=== PATIENT | female | born 1960 | race Caucasian/White ===

== ENCOUNTER → 2017-01-07 | Outpatient (CLI) | payer MEDICARE ==
[2017-01-07 08:34] LABS: Basophils % (A) 0 %; CH 25.6; CHCM 31.7; Eosinophils # (A) 0.1 k/uL (0-0.7); Eosinophils % (A) 1 %; HCT 39.7 % (34.0-46.0); HGB 12.8 gm/dL (11.4-16.0); Luc # (Auto) 0.17; Luc % (Auto) 3; Lymphocytes # (A) 2.2 k/uL (1.0-4.8); Lymphocytes % (A) 36 %; MCH 26.2 pg (25.0-35.0); MCHC 32.3 g/dL (31.0-37.0); MCV 81.1 fL (80.0-100.0); Mean Platelet Volume 6.5; Monocytes # (A) 0.6 k/uL (0-1.0); Monocytes % (A) 9 %; Neutrophils # (A) 3.3 k/uL (1.3-7.7); Neutrophils % (A) 52 %; RBC 4.89 m/uL (3.80-5.40); RDW 15.4 % (11.5-15.5); WBC 6.3 k/uL (3.8-10.6); WBC (Perox) 6.49
[2017-01-07 08:54] LABS: ALT 26 U/L (9-52); AST 22 U/L (14-36); Alkaline Phosphatase 85 U/L (38-126); Anion Gap 8 mmol/L; Blood Urea Nitrogen 17 mg/dL (7-17); Calcium 8.6 mg/dL (8.4-10.2); Carbon Dioxide 28 mmol/L (22-30); Chloride 100 mmol/L (98-107); Cholesterol 181 mg/dL (<200); Glucose 82 mg/dL (74-99); HDL Cholesterol 81 mg/dL (40-60); Non-African American GFR(MDRD) >60 (>60 ml/min/1.73 sqM); Potassium 4.8 mmol/L (3.5-5.1); Sodium 136 mmol/L (137-145); Total Bilirubin 0.6 mg/dL (0.2-1.3); Total Protein 6.5 g/dL (6.3-8.2); Triglycerides 211 mg/dL (<150)
== END ==
LOC: LABWHC1 08:05
PROVIDERS: ATTEND Nurse Practitioner Adult Health
DX: E78.5 Hyperlipidemia, unspecified (principal); E03.9 Hypothyroidism, unspecified
CPT/HCPCS: 36415; 80053; 80061; 84439; 84443; 85025

== ENCOUNTER → 2017-01-07 | Outpatient (CLI) | payer MEDICARE ==
--- NOTE | 2017-01-07 10:30 | MR ---
MRI of the brain with and without contrast HISTORY: Headaches. TECHNIQUE: T1-weighted sagittal, T2, FLAIR, and diffusion axial, postcontrast T1 axial and coronal vi ews of the brain are submitted. CONTRAST: 16 mL MultiHance COMPARISON: 06/22/2015 FINDINGS: There is no evidence of acute ischemia. The ventricles, basal cisterns, and sulci overlying the co nvexities are consistent with the patient's age. There is no mass effect or enhancing mass. Craniocervical junction maintained. Sella turcica has a normal appearance. No evidence of cerebellopo ntine angle mass. Changes of chronic sinusitis noted. WHITE MATTER: There are approximately 30 white matter lesions scattered bilaterally. The largest measures 8.5 mm ad jacent to the posterior margin of left lateral ventricle appears slightly increased in size from the previous exam. There also is a lesion within the posterior right parietal white matter measuring 3.5 mm increased in size from the previous exam. Remaining lesions demonstrate a stable morphology and nu mber. No enhancing lesions. No lesions perpendicular to ventricular system. No callosal lesions. No p osterior fossa lesions. IMPRESSION: 1. Stable number of white matter lesions. However, there is increase in 2 lesions involving the right cerebral hemisphere in size relative to the previous exam by incremental couple of millimeters. No e nhancing lesions. Findings compatible with demyelinating process.
== END ==
LOC: RADMRIMAIN 07:48
PROVIDERS: ATTEND Psychiatry & Neurology Neurology
DX: G35 Multiple sclerosis (principal); J32.9 Chronic sinusitis, unspecified
CPT/HCPCS: 70553; A9577

== ENCOUNTER 2017-02-18 09:40 | Day surgery (SDC) | payer MEDICARE ==
[2017-02-16 12:55] VITALS: BMI 30.3
[~2017-02-18 09:40] MED LIST: LACTATED RINGERS 1,000 ML IV SCH; LIDOCAINE 1% 20 ML VIAL (10MG/ML) FOR IV START INTRADERMA PRN
[2017-02-18 10:32] VITALS: RESP 16; TEMP 98.5
[2017-02-18] MEDS ORDERED: PROPOFOL 10 MG/ML 20 ML VIAL IV ONE (11:01)
--- NOTE | 2017-02-18 11:26 | P.PCN ---
Date of Procedure: 02/18/17 Preoperative Diagnosis: Postoperative Diagnosis: Procedure(s) Performed: Brief history: Patient is a pleasant 56-year-old white female, scheduled for an elective upper endoscopy as well as colonoscopy as a part of evaluation of surveillance of Patton's esophagus and positive cologard testing which was done as part of screening for colon cancer. Procedure performed: Esophagogastroduodenoscopy with biopsy Colonoscopy Preoperative diagnosis: Patton's esophagus Positive Cologuard testing Anesthesia: MAC Procedure: After informed consent was obtained from the patient was brought into the endoscopy unit and IV sedation was administered by anesthesia under continuous monitoring. Initially upper endoscopy was done. The Olympus GF 160 video endoscope was inserted inserted into the mouth and esophagus intubated without any difficulty and was gradually advanced into the stomach and duodenum and carefully examined. The bulb and second part of the duodenum appeared normal. The scope was then withdrawn into the stomach adequately insufflated with air and upon careful examination the antrum and body, had few scattered polyps which were biopsied. The cardia and fundus appeared normal. The scope was then withdrawn into the esophagus. The GE junction was located at 39 cm to the incisors. It appeared regular with no erythema erosions or ulcerations. There was a short tongue of Patton's appearing mucosa at 37 cm from the incisors and this was biopsied. Rest of the esophagus appeared normal. Patient tolerated the procedure well. At this time the patient continued to remain sedation. Initial digital rectal examination was normal. Olympus CF 160 video colonoscope was then inserted into the rectum and gradually advanced to the cecum without any difficulty. Careful examination was performed as the scope was gradually being withdrawn. The prep was somewhat poor and several areas of the colon and thorough irrigation was performed. The cecum, ascending colon, transverse colon, descending colon, sigmoid colon and rectum appeared normal. Retroflexion was performed in the rectum and no lesions were noted. Patient tolerated the procedure well. Impression: 1. Upper endoscopy revealed scattered gastric polyps and short segment Patton' s esophagus 2. Colonoscopy was essentially within normal limits with no evidence of colitis or colorectal neoplasia. Recommendations: Findings of this examination were discussed with the patient as well as her family. She was advised to follow with the biopsy results. If the biopsy confirms Patton's esophagus she can have a repeat upper endoscopy in 2 years. Because of the poor prep I advised her to have a repeat colonoscopy in 5 years Implants: Indications for Procedure: Operative Findings: Description of Procedure:
[2017-02-18 11:30] VITALS: BP 115/81; PULSE 76
== END 2017-02-18 12:18 | disposition home or self-care (01) ==
LOC: ORWHC2ENDO 09:40
PROVIDERS: ATTEND Internal Medicine Gastroenterology
DX: Z12.11 Encounter for screening for malignant neoplasm of colon (principal); Z15.09 Genetic susceptibility to other malignant neoplasm; K22.70 Barrett's esophagus without dysplasia; K31.7 Polyp of stomach and duodenum; I10 Essential (primary) hypertension; E07.9 Disorder of thyroid, unspecified; G35 Multiple sclerosis; K21.9 Gastro-esophageal reflux disease without esophagitis; Z79.899 Other long term (current) drug therapy; Z88.5 Allergy status to narcotic agent
CPT/HCPCS: 88305; 88342; 43239; J2704; G0121

== ENCOUNTER → 2018-01-28 | Outpatient (CLI) | payer MEDICARE ==
--- NOTE | 2018-02-09 13:51 | MM ---
Reason for exam: screening (asymptomatic). Last mammogram was performed 2 years and 3 months ago. History: Patient is postmenopausal. Family history of breast cancer in mother and breast cancer in sister. Took estrogen beginning at age 22. Took progesterone beginning at age 22. Physical Findings: A clinical breast exam by your physician is recommended on an annual basis and results should be correlated with mammographic findings. MG 3D Screening Mammo W/Cad Bilateral CC and MLO view(s) were taken. Prior study comparison: October 16, 2015, mammogram, performed at [facility]. September 26, 2013, mammogram, performed at [facility]. Finding: There are typically benign calcifications in both breasts. No suspicious abnormality. Chronic bilateral nipple inversion noted. ASSESSMENT: Benign, BI-RAD 2 RECOMMENDATION: Routine screening mammogram of both breasts in 1 year.
== END | disposition home or self-care (01) ==
LOC: RADMAMWWP 11:03
PROVIDERS: ATTEND Family Medicine
DX: Z12.31 Encounter for screening mammogram for malignant neoplasm of breast (principal)
CPT/HCPCS: 77063; 77067

== ENCOUNTER → 2018-03-22 | Outpatient (CLI) | payer MEDICARE ==
[2018-03-22 08:47] LABS: Basophils % (A) 1 %; Eosinophils # (A) 0.1 k/uL (0-0.7); Eosinophils % (A) 3 %; HCT 39.5 % (34.0-46.0); HGB 13.1 gm/dL (11.4-16.0); Lymphocytes # (A) 0.8 k/uL (1.0-4.8); Lymphocytes % (A) 21 %; MCH 26.3 pg (25.0-35.0); MCV 79.6 fL (80.0-100.0); Mean Platelet Volume 6.5; Monocytes # (A) 0.3 k/uL (0-1.0); Monocytes % (A) 7 %; Neutrophils # (A) 2.6 k/uL (1.3-7.7); Neutrophils % (A) 68 %; Platelet Count 271 k/uL (150-450); RBC 4.96 m/uL (3.80-5.40); RDW 15.8 % (11.5-15.5); WBC 3.9 k/uL (3.8-10.6)
[2018-03-22 08:56] LABS: ALT 20 U/L (9-52); AST 34 U/L (14-36); Alkaline Phosphatase 109 U/L (38-126); Anion Gap 10 mmol/L; Blood Urea Nitrogen 13 mg/dL (7-17); Calcium 9.1 mg/dL (8.4-10.2); Carbon Dioxide 27 mmol/L (22-30); Chloride 104 mmol/L (98-107); Cholesterol 184 mg/dL (<200); Glucose 93 mg/dL (74-99); HDL Cholesterol 51 mg/dL (40-60); LDL Cholesterol,Calculated 108 mg/dL (0-99); Sodium 141 mmol/L (137-145); Total Bilirubin 0.4 mg/dL (0.2-1.3); Triglycerides 124 mg/dL (<150)
[2018-03-22 09:11] LABS: T4, Free (Free Thyroxine) 1.24 ng/dL (0.78-2.19)
--- NOTE | 2018-03-22 10:13 | MR ---
EXAMINATION TYPE: MR brain wo/w con DATE OF EXAM: 03/22/2018 COMPARISON: MRI brain January 07, 2017. HISTORY: Relapsing remitting multiple sclerosis TECHNIQUE: Multiplanar, multisequence images of the brain and brainstem is performed without and with IV contras t, utilizing 8.5 mL intravenous Gadavist gadolinium contrast is administered intravenously. Demyelin ating disease protocol with additional Sagittal Flair sequence performed. FINDINGS: T2 Lesions Present : Yes Approximate Number of Lesions: Approximately 20-30 Locations Identified : Scattered subcortical deep and periventricular lesions most prominent posterio rly are redemonstrated. Size of Reference Lesion(s): 1. 0.7 cm x 0.7 cm x 0.8 cm on axial image 18 and sagittal image 11 left parietal periventricular le richa stable. Enhancing Lesion(s) Present: No T1 Hypointense Lesion(s) Present: Yes Change from Prior: Stable Diffusion weighted images demonstrate no evidence of a recent infarct or other diffusion abnormality. There is no worrisome extra-axial fluid collection. The ventricular system and cisternal spaces ar e normal in size and appearance. The brain volume is age appropriate. Midline structures demonstrate normal morphology. The craniocervical junction appears within normal limits. Post contrast images demonstrate no abnormal enhancement. The dural venous sinuses appear pa tent. Mild mucosal thickening bilateral ethmoid sinuses remains present. The globes are intact bilate rally. IMPRESSION: Mild to moderate white matter changes redemonstrated felt stable. No new or enhancing les ions are clearly identified.
[2018-03-22 16:58] LABS: Insulin Level 14.4 mIU/mL (3.0-25.0); Vitamin D 25 Hydroxy 23.6 ng/mL (30.0-100.0)
== END ==
LOC: RADMRIMAIN 08:07
PROVIDERS: ATTEND Psychiatry & Neurology Neurology
DX: Z00.00 Encounter for general adult medical examination without abnormal findings (principal); R90.89 Other abnormal findings on diagnostic imaging of central nervous system; G35 Multiple sclerosis; Z13.89 Encounter for screening for other disorder
CPT/HCPCS: 84439; 80061; 80053; 84443; 85025; 83525; 82306; 70553; A9581

== ENCOUNTER 2019-03-20 11:37 | Observation (INO) | payer MEDICARE ==
[2019-03-20] MEDS ORDERED: LORazepam 2 MG/ML INJ IV STA (12:07)
[2019-03-20] MEDS ORDERED: methylPREDNISolone SOD SUCCI 125 MG/2 ML VIAL IV STA (12:07)
--- NOTE | 2019-03-20 12:25 | ED ---
SOB HPI - General Chief Complaint: Shortness of Breath Stated Complaint: SOB Time Seen by Provider: 03/20/19 11:44 Source: patient, RN notes reviewed Mode of arrival: ambulatory Limitations: no limitations - History of Present Illness Initial Comments: 58-year-old female presents emergency Department with chief complaint of shortness of breath. Patient states that she started symptoms yesterday worsened today. Patient was seen at [facility] because she had worsening symptoms and some chest heaviness. Patient states they diagnosed her with acute bronchitis. She was given a breathing treatment and had some near syncopal episodes. Patient states then she started developing numbness and tingling to her extremities pinch in which they are concerned that she is having an MS exacerbation. She does state that she has these symptoms with her MS. Patient has not had a relapse in several years. Patient states that she has no significant cardiac history and she did have a recent evaluation by cardiology though she had no recent stress test. Patient states that she has some heaviness in her chest and burning sensation in her right shoulder blade region. She has no complaints of abdominal pain. She does admit to some exertional shortness of breath. - Related Data Home Medications Medication Instructions Recorded Confirmed Metoprolol Tartrate [Lopressor] 50 mg PO DAILY 10/17/14 03/20/19 Omeprazole [PriLOSEC] 20 mg PO AC-BID 10/17/14 03/20/19 Loratadine [Claritin] 10 mg PO DAILY PRN 01/09/15 03/20/19 Cyclobenzaprine [Flexeril] 10 mg PO HS 12/29/16 03/20/19 Glatiramer Acetate [Copaxone] 20 mg SQ DAILY 12/29/16 03/20/19 Lisinopril [Prinivil] 5 mg PO HS 12/29/16 03/20/19 Multivitamins, Thera [Multivitamin 1 tab PO DAILY 12/29/16 03/20/19 (formulary)] Levothyroxine Sodium [Synthroid] 100 mcg PO DAILY 02/16/17 03/20/19 Metoprolol Tartrate 25 mg PO DAILY@1200 02/16/17 03/20/19 Cyclobenzaprine [Flexeril] 5 mg PO BID 03/20/19 03/20/19 Gabapentin [Neurontin] 200 mg PO BID 03/20/19 03/20/19 Allergies Allergy/AdvReac Type Severity Reaction Status Date / Time coconut Allergy Anaphylaxis Verified 03/20/19 12:22 codeine AdvReac Nausea & Verified 03/20/19 12:22 Vomiting Review of Systems ROS Statement: Those systems with pertinent positive or pertinent negative responses have been documented in the HPI. ROS Other: All systems not noted in ROS Statement are negative. Past Medical History Past Medical History: Asthma, Fibromyalgia, GERD/Reflux, Hypertension, Osteoarthritis (OA), Pneumonia, Thyroid Disorder Additional Past Medical History / Comment(s): Multiple sclerosis, allergy induced asthma, hiatal hernia, History of Any Multi-Drug Resistant Organisms: None Reported Past Surgical History: Appendectomy, Back Surgery, Cholecystectomy, H ysterectomy, Joint Replacement, Tonsillectomy Additional Past Surgical History / Comment(s): spinal fusion, left knee replacement Past Anesthesia/Blood Transfusion Reactions: Postoperative Nausea & Vomiting (PONV) Past Psychological History: No Psychological Hx Reported Smoking Status: Never smoker Past Alcohol Use History: Rare Past Drug Use History: None Reported - Past Family History Father Family Medical History: Coronary Artery Disease (CAD) Mother Family Medical History: Cancer Sister(s) Family Medical History: Coronary Artery Disease (CAD), CVA/TIA Additional Family Medical History / Comment(s): Hx lupus Brother(s) Family Medical History: Coronary Artery Disease (CAD) Daughter(s) Family Medical History: Thyroid Disorder Son(s) Family Medical History: Hypertension General Exam Limitations: no limitations General appearance: alert, in no apparent distress Head exam: Present: atraumatic, normocephalic, normal inspection Eye exam: Present: normal appearance, PERRL, EOMI. Absent: scleral icterus, conjunctival injection, periorbital swelling ENT exam: Present: normal exam, normal oropharynx, mucous membranes moist Neck exam: Present: normal inspection, full ROM. Absent: tenderness, meningismus, lymphadenopathy Respiratory exam: Present: normal lung sounds bilaterally. Absent: respiratory distress, wheezes, rales, rhonchi, stridor Cardiovascular Exam: Present: regular rate, normal rhythm, normal heart sounds. Absent: systolic murmur, diastolic murmur, rubs, gallop, clicks GI/Abdominal exam: Present: soft, normal bowel sounds. Absent: distended, tenderness, guarding, rebound, rigid Neurological exam: Present: alert, oriented X3, CN II-XII intact Skin exam: Present: warm, dry, intact, normal color. Absent: rash Course Vital Signs 03/20/19 03/20/19 03/20/19 11:38 13:00 13:55 Temperature 97.5 F L Pulse Rate 79 78 78 Respiratory 18 19 Rate Blood Pressure 110/71 122/103 120/78 O2 Sat by Pulse 99 97 Oximetry Medical Decision Making - Medical Decision Making 4-year-old female presents emergency department for chest pain, shortness of breath. Patient with diagnosis of bronchitis. Patient does have some exertional symptoms and nonreproducible chest pain. Patient had lab work, EKG and chest x-ray which were initially unremarkable CT showed evidence of ground glass changes possible alveolitis versus pneumonitis an inflammatory nodule. There is no PE. This is still concerning given patient's presentation for cardiac in nature versus pneumonia. Patient will be admitted for IV antibiotics, cardiology evaluation. - Lab Data Result diagrams: 03/20/19 12:02 03/20/19 12:02 Lab Results 03/20/19 03/20/19 03/20/19 Range/Units 12:02 12:02 12:02 WBC 5.5 (3.8-10.6) k/uL RBC 5.28 (3.80-5.40) m/uL Hgb 13.9 (11.4-16.0) gm/dL Hct 42.6 (34.0-46.0) % MCV 80.6 (80.0-100.0) fL MCH 26.3 (25.0-35.0) pg MCHC 32.7 (31.0-37.0) g/dL RDW 15.0 (11.5-15.5) % Plt Count 286 (150-450) k/uL Neutrophils % 65 % Lymphocytes % 25 % Monocytes % 6 % Eosinophils % 1 % Basophils % 0 % Neutrophils # 3.6 (1.3-7.7) k/uL Lymphocytes # 1.4 (1.0-4.8) k/uL Monocytes # 0.3 (0-1.0) k/uL Eosinophils # 0.1 (0-0.7) k/uL Basophils # 0.0 (0-0.2) k/uL PT 9.6 (9.0-12.0) sec INR 0.9 (<1.2) APTT 23.9 (22.0-30.0) sec D-Dimer 0.81 H (<0.60) mg/L FEU Sodium 139 (137-145) mmol/L Potassium 4.6 (3.5-5.1) mmol/L Chloride 107 (98-107) mmol/L Carbon Dioxide 22 (22-30) mmol/L Anion Gap 10 mmol/L BUN 15 (7-17) mg/dL Creatinine 0.92 (0.52-1.04) mg/dL Est GFR (CKD-EPI)AfAm 79 (>60 ml/min/1.73 sqM) Est GFR (CKD-EPI)NonAf 68 (>60 ml/min/1.73 sqM) Glucose 101 H (74-99) mg/dL Calcium 9.3 (8.4-10.2) mg/dL Magnesium 2.2 (1.6-2.3) mg/dL Total Bilirubin 0.4 (0.2-1.3) mg/dL AST 29 (14-36) U/L ALT 11 (9-52) U/L Alkaline Phosphatase 111 (38-126) U/L Troponin I (0.000-0.034) ng/mL NT-Pro-B Natriuret Pep pg/mL Total Protein 7.0 (6.3-8.2) g/dL Albumin 4.1 (3.5-5.0) g/dL 03/20/19 03/20/19 Range/Units 12:02 12:02 WBC (3.8-10.6) k/uL RBC (3.80-5.40) m/uL Hgb (11.4-16.0) gm/dL Hct (34.0-46.0) % MCV (80.0-100.0) fL MCH (25.0-35.0) pg MCHC (31.0-37.0) g/dL RDW (11.5-15.5) % Plt Count (150-450) k/uL Neutrophils % % Lymphocytes % % Monocytes % % Eosinophils % % Basophils % % Neutrophils # (1.3-7.7) k/uL Lymphocytes # (1.0-4.8) k/uL Monocytes # (0-1.0) k/uL Eosinophils # (0-0.7) k/uL Basophils # (0-0.2) k/uL PT (9.0-12.0) sec INR (<1.2) APTT (22.0-30.0) sec D-Dimer (<0.60) mg/L FEU Sodium (137-145) mmol/L Potassium (3.5-5.1) mmol/L Chloride (98-107) mmol/L Carbon Dioxide (22-30) mmol/L Anion Gap mmol/L BUN (7-17) mg/dL Creatinine (0.52-1.04) mg/dL Est GFR (CKD-EPI)AfAm (>60 ml/min/1.73 sqM) Est GFR (CKD-EPI)NonAf (>60 ml/min/1.73 sqM) Glucose (74-99) mg/dL Calcium (8.4-10.2) mg/dL Magnesium (1.6-2.3) mg/dL Total Bilirubin (0.2-1.3) mg/dL AST (14-36) U/L ALT (9-52) U/L Alkaline Phosphatase (38-126) U/L Troponin I <0.012 (0.000-0.034) ng/mL NT-Pro-B Natriuret Pep 1050 pg/mL Total Protein (6.3-8.2) g/dL Albumin (3.5-5.0) g/dL - EKG Data EKG Comments: EKG performed to: 06 normal sinus rhythm rate 73 MI 174 QRS 92 QT/QTC 394/434 Disposition Clinical Impression: Chest pain, Near syncope, Exertional shortness of breath, Pneumonitis Disposition: ADMITTED IP TO THIS [facility] Condition: Fair Referrals: Thomas Donahue MD [Primary Care Provider] - 1-2 days
[2019-03-20 12:30] LABS: Basophils % (A) 0 %; Eosinophils # (A) 0.1 k/uL (0-0.7); Eosinophils % (A) 1 %; HCT 42.6 % (34.0-46.0); HGB 13.9 gm/dL (11.4-16.0); Lymphocytes # (A) 1.4 k/uL (1.0-4.8); Lymphocytes % (A) 25 %; MCH 26.3 pg (25.0-35.0); MCHC 32.7 g/dL (31.0-37.0); MCV 80.6 fL (80.0-100.0); Mean Platelet Volume 6.9; Monocytes # (A) 0.3 k/uL (0-1.0); Monocytes % (A) 6 %; Neutrophils # (A) 3.6 k/uL (1.3-7.7); Neutrophils % (A) 65 %; Platelet Count 286 k/uL (150-450); RBC 5.28 m/uL (3.80-5.40); WBC 5.5 k/uL (3.8-10.6)
--- NOTE | 2019-03-20 12:32 | XR ---
EXAMINATION TYPE: XR chest 2V DATE OF EXAM: 03/20/2019 COMPARISON: NONE TECHNIQUE: PA and lateral views submitted. HISTORY: Shortness of breath FINDINGS: The lungs are clear and there is no pneumothorax, pleural effusion, or focal pneumonia. Hypertrophi c and degenerative change the spine. Postoperative change vertebral column. Hyperinflation suggests C OPD. IMPRESSION: 1. No acute process.
[2019-03-20 12:45] LABS: Albumin 4.1 g/dL (3.5-5.0); Calcium 9.3 mg/dL (8.4-10.2); Magnesium 2.2 mg/dL (1.6-2.3); Potassium 4.6 mmol/L (3.5-5.1); Total Bilirubin 0.4 mg/dL (0.2-1.3)
[2019-03-20 12:47] LABS: INR 0.9 (<1.2); Partial Thromboplastin Time 23.9 sec (22.0-30.0); Prothrombin Time 9.6 sec (9.0-12.0)
[2019-03-20 12:55] LABS: D-Dimer 0.81 mg/L FEU (<0.60)
--- NOTE | 2019-03-20 13:47 | CT ---
EXAMINATION TYPE: CT chest angio for PE DATE OF EXAM: 03/20/2019 COMPARISON: 12/21/2009 HISTORY: SOB CT DLP: 341.2 mGycm Automated exposure control for dose reduction was used. CONTRAST: CT Chest for pulmonary embolism performed with with IV Contrast, patient injected with 56 mL of Isovu e 370. FINDINGS: LUNGS: There are groundglass changes seen bilaterally throughout the lungs. No sizable pleural effusi on. Motion artifact limits assessment pulmonary nodule. Left lower lobe there is a 7 mm vague nodular density.. No pneumothorax. MEDIASTINUM: Ectasia of the origin of the great vessels noted. Ascending aorta measures 4 cm compatib le with mild aneurysmal dilation. Mild coronary artery calcification. The heart is enlarged. No pericardial effusion. Pulmonary arteries enhance normally. Shotty adenopathy in the hilum and mediastinum. OTHER: Hypertrophic and degenerative change of the spine. Small hiatal hernia noted. IMPRESSION: Exam limited by respiratory motion artifact. 1. Groundglass changes are nonspecific may been the basis of atelectasis correlate clinically to excl ude alveolitis or pneumonitis. 2. No evidence of pulmonary embolism. 3. Mild aneurysmal dilation ascending aorta measuring 4 cm. 4. Vague 7 mm nodule left lower lobe may be inflammatory. Recommend 6 month follow-up CT scan to con firm stability.
[2019-03-20] MEDS ORDERED: HEPARIN SOD,PORK IN 0.45% NACL 25,000 UNIT in 0.45% NACL 1 250ML.BAG IV SCH (14:00)
[2019-03-20] MEDS ORDERED: NITROGLYCERIN SL TABS 0.4 MG TAB SUBLINGUAL PRN (14:00)
[2019-03-20] MEDS ORDERED: HEPARIN SODIUM,PORCINE 5,000 UNIT/ML 1 ML VIAL IV ONE (14:00)
[2019-03-20] MEDS ORDERED: cefTRIAXone IN SWFI 1,000 MG/10 ML SYRINGE IVP STA (14:01)
[2019-03-20] MEDS ORDERED: AZITHROMYCIN 500 MG in SODIUM CHLORIDE 0.9% 250 ML IVPB STA (14:01)
[2019-03-20] MEDS ORDERED: SODIUM CHLORIDE 0.9% 1,000 ML IV STA (14:23)
[2019-03-20] MEDS ORDERED: LORATADINE 10 MG TAB PO PRN (17:50)
[2019-03-20] MEDS ORDERED: HYDROcodone/APAP 5-325MG 1 EACH TAB PO PRN (17:53)
[2019-03-20] MEDS ORDERED: ONDANSETRON 4 MG/2 ML VIAL IVP PRN (17:53)
[2019-03-20] MEDS ORDERED: MELATONIN 3 MG TABLET PO PRN (17:53)
[2019-03-20] MEDS ORDERED: ACETAMINOPHEN TAB 325 MG TAB PO PRN (17:53)
[2019-03-20] MEDS ORDERED: NALOXONE 0.4 MG/ML 1 ML VIAL IV PRN (17:53)
--- NOTE | 2019-03-20 17:58 | P.HPIM ---
History of Present Illness H&P Date: 03/20/19 Chief Complaint: shortness of breath Patient is a 58-year-old female with a past medical history of relapsing remitting multiple sclerosis on Copaxone, hypertension, hypothyroidism, GERD, Patton's esophagus, and asthma who presented to the hospital at the direction of Dr. Ram shortness of breath. She had presented to their walk in clinic with shortness of breath. Dr. Ram had diagnosied her with bronchitis and ordered a breathing treatment. She then developed light headness, chest palpitation, and felt like she would black out. She also developed numbness and tingling in her arms and legs, as well as some weakness. She was sent to the emergency department. On arrival here her vital signs are within normal limits. Her laboratory analysis is essentially unremarkable. She has slightly elevated d-dimer. Chest x-ray was negative however CT of the chest showed groundglass opacities consistent with pneumonitis as well as a 7 mm nodule. She was started on steroids, aspirin, and heparin drip. They also gave Rocephin and Zithromax. She was also given an aspirin due to concerns for anginal control it. Her EKG did not show any signs of ST segment abnormalities or acute ischemia. She is admitted for further monitoring. Patient seen and examined at bedside. She started having shortness of breath on exertion [place] It was relieved with rest. He decided to come home because they thought it was due to the heat and humidity. However her shortness of breath with exertion continued to take into today. She did try using her nebulizer which helped relieve some chest heaviness. Today she presented to Dr. Donahue's office and the events occurred as noted above. She reports that with her shortness of breath she was having some lightheadedness and chest heaviness. She also reports that since arriving in the hospital she developed a nonproductive cough. She denies any runny nose, stuffy nose, or postnasal drip. She states that for the last 2 weeks she has just felt not well but didn't have any specific symptoms. She reports that she had some bilateral upper and lower extremity tingling at Dr. MIRANDA's office which is better after receiving IV steroids here. She denies any recent fevers. She has a history of relapsing remitting multiple sclerosis which is being investigated to determine if there has been transitioned to secondary progressive. She has an appointment and he'll vomit in 1 week. She has been using Suboxone injections. She follows with Dr. Yael Spring. She reports that when she has received IV steroids at 1 g she has needed them to occur over a 24-hour period and not at one point in time. She also reports that she gets insomnia and high levels of anxiety with this. She has no history of heart attack or stroke in the past, but has a family history of heart disease. She reports that she sees Dr. SHAINA palm in the office. She saw him last approximately one month ago and was given a clean bill of [employer]. Review of Systems Pertinent positives and negatives as discussed in HPI, a complete review of systems was performed and all other systems are negative. Past Medical History Past Medical History: Asthma, Fibromyalgia, GERD/Reflux, Hypertension, Osteoarthritis (OA), Pneumonia, Thyroid Disorder Additional Past Medical History / Comment(s): Multiple sclerosis, allergy induced asthma, hiatal hernia, Patton's esophagus History of Any Multi-Drug Resistant Organisms: None Reported Past Surgical History: Appendectomy, Back Surgery, Cholecystectomy, Hysterectomy, Joint Replacement, Tonsillectomy Additional Past Surgical History / Comment(s): spinal fusion, left knee replacement Past Anesthesia/Blood Transfusion Reactions: Postoperative Nausea & Vomiting (PONV) Past Psychological History: No Psychological Hx Reported Smoking Status: Never smoker Past Alcohol Use History: Rare Past Drug Use History: None Reported Additional History: Lives with uses a cane most days and when MS is bad uses a wheel chair - Past Family History Father Family Medical History: Coronary Artery Disease (CAD) Additional Family Medical History / Comment(s): PPM. All of his brothers and sisters had heart disease Mother Family Medical History: Cancer Sister(s) Family Medical History: Coronary Artery Disease (CAD), CVA/TIA Additional Family Medical History / Comment(s): Hx lupus Brother(s) Family Medical History: Coronary Artery Disease (CAD) Daughter(s) Family Medical History: Thyroid Disorder Son(s) Family Medical History: Hypertension Medications and Allergies Home Medications Medication Instructions Recorded Confirmed Type Metoprolol Tartrate [Lopressor] 50 mg PO DAILY 10/17/14 03/20/19 History Omeprazole [PriLOSEC] 20 mg PO AC-BID 10/17/14 03/20/19 History Loratadine [Claritin] 10 mg PO DAILY PRN 01/09/15 03/20/19 History Cyclobenzaprine [Flexeril] 10 mg PO HS 12/29/16 03/20/19 History Glatiramer Acetate [Copaxone] 20 mg SQ DAILY 12/29/16 03/20/19 History Lisinopril [Prinivil] 5 mg PO HS 12/29/16 03/20/19 History Multivitamins, Thera [Multivitamin 1 tab PO DAILY 12/29/16 03/20/19 History (formulary)] Levothyroxine Sodium [Synthroid] 100 mcg PO DAILY 02/16/17 03/20/19 History Metoprolol Tartrate 25 mg PO DAILY@1200 02/16/17 03/20/19 History Cyclobenzaprine [Flexeril] 5 mg PO BID 03/20/19 03/20/19 History Gabapentin [Neurontin] 200 mg PO BID 03/20/19 03/20/19 History Allergies Allergy/AdvReac Type Severity Reaction Status Date / Time coconut Allergy Anaphylaxis Verified 03/20/19 12:22 codeine AdvReac Nausea & Verified 03/20/19 12:22 Vomiting Physical Exam Osteopathic Statement: *. No significant issues noted on an osteopathic structural exam other than those noted in the History and Physical/Consult. Vitals: Vital Signs Temp Pulse Resp BP Pulse Ox 03/20/19 17:00 77 16 108/72 97 03/20/19 16:00 87 22 110/77 97 03/20/19 15:00 87 18 104/87 98 03/20/19 14:00 86 15 120/78 98 03/20/19 13:55 78 120/78 03/20/19 13:00 78 19 122/103 97 03/20/19 11:38 97.5 F L 79 18 110/71 99 Intake and Output 03/20/19 03/20/19 03/20/19 06:59 14:59 22:59 Other: Weight 83.915 kg General: non toxic, no distress, appears at stated age, normal weight Derm: no unusual rashes/lesions no unusual ecchymoses, warm, dry Head: atraumatic, normocephalic, symmetric Eyes: EOMI, no lid lag, anicteric sclera, pupils equal round reactive to light ENT: Nose and ears atraumatic, no thrush, no pharyngeal erythema Neck: No thyromegaly, no cervical lymphadenopathy, trachea midline, supple Mouth: no lip lesion, mucus membranes moist Cardiovascular: S1S2 reg, no murmur, positive posterior tibial pulse bilateral, no edema, capillary refill less than 2 seconds Lungs: Decreased breath sounds bilateral, no rhonchi, no rales , no accessory muscle use Abdominal: soft, nontender to palpation, no guarding, no appreciable organomegaly, normal bowel sounds Ext: no gross muscle atrophy, muscle strength 4 out of 5 in bilateral upper extremities, 4 out of 5 in right lower extremity, 3 out of 5 in left lower extremity, no contractures, Neuro: CN II-XI grossly intact, light touch intact bilateral face and upper extremities, decreased white count sensation left lower extremity, intact and right lower extremity, finger to nose within normal limits on the right, poor [id number] left, Psych: Alert, oriented, appropriate affect Results CBC & Chem 7: 03/20/19 12:02 03/20/19 12:02 Labs: Abnormal Lab Results - Last 24 Hours (Table) 03/20/19 03/20/19 Range/Units 12:02 12:02 D-Dimer 0.81 H (<0.60) mg/L FEU Glucose 101 H (74-99) mg/dL Comments: EKG is reviewed by myself reveals normal sinus rhythm at a rate of 73, normal axis, QTC 434, IA 174, no ST segment changes Chest x-ray: report reviewed Thrombosis Risk Factor Assmnt - DVT/VTE Prophylaxis DVT/VTE Prophylaxis: Pharmacologic Prophylaxis ordered Assessment and Plan Assessment: Dyspnea, likely multifactorial -Concern for possible anginal equivalent: Troponins every 6 hours 3, telemetry, aspirin, heparin drip, echo in a.m., cardiology consult, aspirin, =beta radha -Pneumonitis on chest x-ray and symptoms consistent with a pneumonia: Continue with Rocephin, Zithromax, IV fluids, sputum culture, bronchodilators, and steroids -O2 as needed, pulmonary hygiene Multiple sclerosis with probable flare -Patient does not feel like she is having a true flare as her symptoms got better after receiving low-dose IV steroids in the ER -Consult neurology -Start prednisone with her pneumonia -Consider treatment with 1000 mg Solu-Medrol every 24 hours if symptoms worsen -Continue with her Flexeril, gabapentin, and Copaxone Presyncope - Likely due to shortness of breath - Tele - Cardio consult - Echo Pulm nodule - repeat CT in 6 months Hypertension, controlled -Continue metoprolol and lisinopril GERD -PPI Patient was placed in observation for dyspnea with possible anginal equivalent DVT prophylaxis: Heparin Gtt Discussed with: Patient, Nursing, ED physician Anticipated discharge: 1-[address]: home A total of 65 minutes was spent on the care of this complex patient more than 50% of the time was spent in counseling and care coordination.
[2019-03-20] MEDS: CYCLOBENZAPRINE 10 MG TAB PO SCH (20:15)
[2019-03-20] MEDS: predniSONE 20 MG TAB PO SCH (20:15)
[2019-03-20] MEDS ORDERED: CYCLOBENZAPRINE 10 MG TAB PO SCH (21:00)
[2019-03-20] MEDS ORDERED: LISINOPRIL 5 MG TAB PO SCH (21:00)
[2019-03-20] MEDS: ALPRAZolam 0.25 MG TAB PO SCH (21:04)
[2019-03-20] MEDS: GABAPENTIN 100 MG CAP PO SCH (21:04)
[2019-03-21 06:19] LABS: Basophils % (A) 0 %; Eosinophils % (A) 1 %; HCT 39.5 % (34.0-46.0); HGB 12.8 gm/dL (11.4-16.0); Hypochromasia Slight; Lymphocytes # (A) 0.7 k/uL (1.0-4.8); Lymphocytes % (A) 10 %; MCH 26.6 pg (25.0-35.0); MCHC 32.3 g/dL (31.0-37.0); MCV 82.2 fL (80.0-100.0); Mean Platelet Volume 7.5; Monocytes # (A) 0.3 k/uL (0-1.0); Monocytes % (A) 4 %; Neutrophils # (A) 6.2 k/uL (1.3-7.7); Neutrophils % (A) 86 %; Platelet Count 268 k/uL (150-450); RDW 15.2 % (11.5-15.5); WBC 7.2 k/uL (3.8-10.6)
[2019-03-21] MEDS ORDERED: LEVOTHYROXINE 100 MCG TAB PO SCH (06:30)
[2019-03-21 06:42] LABS: African American GFR (CKD) >90 (>60 ml/min/1.73 sqM); Anion Gap 7 mmol/L; Blood Urea Nitrogen 15 mg/dL (7-17); Calcium 9.3 mg/dL (8.4-10.2); Carbon Dioxide 25 mmol/L (22-30); Chloride 104 mmol/L (98-107); Cholesterol 182 mg/dL (<200); Glucose 143 mg/dL (74-99); HDL Cholesterol 58 mg/dL (40-60); LDL Cholesterol,Calculated 115 mg/dL (0-99); Magnesium 2.3 mg/dL (1.6-2.3); Potassium 4.7 mmol/L (3.5-5.1); Sodium 136 mmol/L (137-145); Triglycerides 44 mg/dL (<150)
[2019-03-21] MEDS ORDERED: PANTOPRAZOLE 40 MG TABLET PO SCH (07:30)
[2019-03-21 07:45] VITALS: RESP 16
[2019-03-21] MEDS ORDERED: ASPIRIN 325 MG TAB PO SCH (09:00)
[2019-03-21] MEDS ORDERED: GLATIRAMER ACETATE 20 MG SQ SCH (09:00)
[2019-03-21] MEDS ORDERED: METOPROLOL TARTRATE 50 MG TAB PO SCH (09:00)
[2019-03-21] MEDS: ALPRAZolam 0.25 MG TAB PO SCH (09:46)
[2019-03-21] MEDS: GABAPENTIN 100 MG CAP PO SCH (09:46)
[2019-03-21] MEDS: predniSONE 20 MG TAB PO SCH (09:46)
[2019-03-21] MEDS: CYCLOBENZAPRINE 10 MG TAB PO SCH (09:47)
--- NOTE | 2019-03-21 10:43 | ECHOF ---
Referral Reason:chest pain MEASUREMENTS -------- HEIGHT: 165.1 cm WEIGHT: 83.9 kg BP: 132/67 RVIDd: 2.7 cm (< 3.3) IVSd: 1.3 cm (0.6 - 1.1) LVIDd: 3.2 cm (3.9 - 5.3) LVPWd: 1.3 cm (0.6 - 1.1) IVSs: 1.8 cm LVIDs: 2.5 cm LVPWs: 1.4 cm LA Diam: 3.0 cm (2.7 - 3.8) LAESV Index (A-L): 14.38 ml/m Ao Diam: 4.0 cm (2.0 - 3.7) AV Cusp: 2.6 cm (1.5 - 2.6) MV EXCURSION: 12.690 mm (> 18.000) MV EF SLOPE: 53 mm/s (70 - 150) EPSS: 0.3 cm MV E Jevon: 0.53 m/s MV DecT: 217 ms MV A Jevon: 0.80 m/s MV E/A Ratio: 0.66 FINDINGS -------- Sinus rhythm. This was a technically adequate study. The left ventricular size is normal. There is mild concentric left ventricular hypertrophy. Overa ll left ventricular systolic function is normal with, an EF between 60 - 65 %. The right ventricle is normal in size. Normal LA size by volume 22+/-6 ml/m2. The right atrium is normal in size. Interatrial and interventricular septum intact. The aortic valve is trileaflet and appears structurally normal. There is trace to mild mitral regurgitation. The tricuspid valve appears structurally normal. There is no pulmonic regurgitation present. The aortic root is dilated measuring 4.0cm. There is no pericardial effusion. CONCLUSIONS -------- 1. Sinus rhythm. 2. This was a technically adequate study. 3. The left ventricular size is normal. 4. There is mild concentric left ventricular hypertrophy. 5. Overall left ventricular systolic function is normal with, an EF between 60 - 65 %. 6. The right ventricle is normal in size. 7. Normal LA size by volume 22+/-6 ml/m2. 8. The right atrium is normal in size. 9. Interatrial and interventricular septum intact. 10. The aortic valve is trileaflet and appears structurally normal. 11. There is trace to mild mitral regurgitation. 12. The tricuspid valve appears structurally normal. 13. There is no pulmonic regurgitation present. 14. The aortic root is dilated measuring 4.0cm. 15. There is no pericardial effusion. FLOORHAND: Melinda Sherwood RDCS
[2019-03-21] MEDS ORDERED: METOPROLOL TARTRATE 25 MG TAB PO SCH (12:00)
[2019-03-21] MEDS ORDERED: MULTIVITAMINS, THERA 1 EACH TAB PO SCH (12:00)
[2019-03-21 12:06] VITALS: BP 138/91; TEMP 97.7
--- NOTE | 2019-03-21 12:10 | P.CRDCN ---
History of Present Illness Consult date: 03/21/19 History of present illness: This is a 58-year-old female with history of relapsing and remitting multiple sclerosis, hypertension, hypothyroidism, Patton's esophagus and also known asthma who was admitted to the hospital with mainly complaints of shortness of breath. Apparently family physician has seen her as an outpatient and diagnosed her having bronchitis. Patient was seen in the clinic and was treated with inhaler. Following that patient became lightheaded and developed some numbness in the legs. In view of that patient was sent to the emergency room. Patient had a mildly elevated d-dimer, but computed tomography scan was negative for pulmonary emboli. Computed tomography scan was consistent with groundglass opacities consistent with pneumonitis. Patient is currently being treated with antibiotics. Patient also had some chest tightness when she was having shortness of breath and lightheadedness. Since admission her cardiac enzymes have been negative. EKG did not reveal any acute changes. Patient seemed to be comfortable at this time. We'll get an echocardiogram done and if that doesn't show any significant wall motion abnormalities, patient could be discharged home when medically stable. She had a stress test about a year ago and follows with Dr. SHAINA Hernandez. Apparently her stress test was negative in the past. Further follow-up and workup as an outpatient with Dr. SHAINA Hernandez Review of Systems As per the chart Past Medical History Past Medical History: Asthma, Fibromyalgia, GERD/Reflux, Hypertension, Osteoarthritis (OA), Pneumonia, Thyroid Disorder Additional Past Medical History / Comment(s): Multiple sclerosis, allergy induced asthma, hiatal hernia, Patton's esophagus History of Any Multi-Drug Resistant Organisms: None Reported Past Surgical History: Appendectomy, Back Surgery, Cholecystectomy, Hysterectomy, Joint Replacement, Tonsillectomy Additional Past Surgical History / Comment(s): spinal fusion, left knee replacement Past Anesthesia/Blood Transfusion Reactions: Postoperative Nausea & Vomiting (PONV) Smoking Status: Never smoker - Past Family History Father Family Medical History: Coronary Artery Disease (CAD) Additional Family Medical History / Comment(s): PPM. All of his brothers and sisters had heart disease Mother Family Medical History: Cancer Sister(s) Family Medical History: Coronary Artery Disease (CAD), CVA/TIA Additional Family Medical History / Comment(s): Hx lupus Brother(s) Family Medical History: Coronary Artery Disease (CAD) Daughter(s) Family Medical History: Thyroid Disorder Son(s) Family Medical History: Hypertension Medications and Allergies Home Medications Medication Instructions Recorded Confirmed Type Omeprazole [PriLOSEC] 20 mg PO AC-BID 10/17/14 03/20/19 History Cyclobenzaprine [Flexeril] 10 mg PO HS 12/29/16 03/20/19 History Glatiramer Acetate [Copaxone] 20 mg SQ DAILY 12/29/16 03/20/19 History Lisinopril [Prinivil] 5 mg PO HS 12/29/16 03/20/19 History Multivitamins, Thera [Multivitamin 1 tab PO DAILY 12/29/16 03/20/19 History (formulary)] Levothyroxine Sodium [Synthroid] 100 mcg PO DAILY 02/16/17 03/20/19 History Cyclobenzaprine [Flexeril] 5 mg PO BID 03/20/19 03/20/19 History Gabapentin [Neurontin] 200 mg PO BID 03/20/19 03/20/19 History Albuterol Inhaler [Ventolin Hfa 1 - 2 puff INHALATION Q6HR PRN #1 03/21/19 Rx Inhaler] inhaler Loratadine [Claritin] 5 mg PO BID #0 03/21/19 03/20/19 Rx Metoprolol Tartrate [Lopressor] 25 mg PO TID #1 03/21/19 03/20/19 Rx predniSONE 10 mg PO DAILY #30 tab 03/21/19 Rx Allergies Allergy/AdvReac Type Severity Reaction Status Date / Time coconut Allergy Anaphylaxis Verified 03/20/19 20:52 codeine AdvReac Nausea & Verified 03/20/19 20:52 Vomiting Physical Exam Vitals: Vital Signs Temp Pulse Pulse Pulse Resp BP BP 03/21/19 12:00 97.7 F 86 16 138/91 03/21/19 08:00 77 90 16 03/21/19 07:44 97.9 F 90 16 139/91 03/21/19 04:00 98.0 F 77 14 132/67 03/21/19 03:58 16 03/20/19 23:42 98.0 F 68 15 103/70 03/20/19 23:12 18 03/20/19 21:00 18 03/20/19 19:16 97.9 F 92 18 119/75 03/20/19 18:30 97.9 F 03/20/19 17:00 77 16 108/72 03/20/19 16:00 87 22 110/77 03/20/19 15:00 87 18 104/87 03/20/19 14:00 86 15 120/78 03/20/19 13:55 78 120/78 03/20/19 13:00 78 19 122/103 Pulse Ox 03/21/19 12:00 97 03/21/19 08:00 03/21/19 07:44 96 03/21/19 04:00 97 03/21/19 03:58 03/20/19 23:42 99 03/20/19 23:12 03/20/19 21:00 03/20/19 19:16 94 L 03/20/19 18:30 03/20/19 17:00 97 03/20/19 16:00 97 03/20/19 15:00 98 03/20/19 14:00 98 03/20/19 13:55 03/20/19 13:00 97 Intake and Output 03/20/19 03/21/19 03/21/19 22:59 06:59 14:59 Other: # Voids 1 1 GENERAL EXAM: Patient is alert and oriented and doesn't appear to be in any acute distress HEENT: Normocephalic. Normal reaction of pupils, equal size, normal range of e xtraocular motion. No erythema or exudates in the throat. NECK: No masses, no nuchal rigidity. CHEST: No chest wall deformity. LUNGS: Equal air entry with no crackles or wheeze. HEART: S1 and S2 normal with no audible mumurs or gallops. Regular rhythm, femorals equal on both sides.. ABDOMEN: No hepatosplenomegaly, normal bowel sounds, no guarding or rigidity. SKIN: No rashes CENTRAL NERVOUS SYSTEM: No focal deficits. EXTREMITIES: No cyanosis, clubbing or edema. Results 03/21/19 05:56 03/21/19 05:56 Cardiac Enzymes 03/20/19 03/20/19 03/20/19 Range/Units 12:02 12:02 17:29 AST 29 (14-36) U/L Troponin I <0.012 <0.012 (0.000-0.034) ng/mL 03/21/19 Range/Units 00:20 AST (14-36) U/L Troponin I <0.012 (0.000-0.034) ng/mL Coagulation 03/20/19 03/20/19 03/21/19 Range/Units 12:02 20:04 06:01 PT 9.6 (9.0-12.0) sec APTT 23.9 47.5 H 49.0 H (22.0-30.0) sec Lipids 03/21/19 Range/Units 05:56 Triglycerides 44 (<150) mg/dL Cholesterol 182 (<200) mg/dL HDL Cholesterol 58 (40-60) mg/dL CBC 03/20/19 03/21/19 Range/Units 12:02 05:56 WBC 5.5 7.2 (3.8-10.6) k/uL RBC 5.28 4.80 (3.80-5.40) m/uL Hgb 13.9 12.8 (11.4-16.0) gm/dL Hct 42.6 39.5 (34.0-46.0) % Plt Count 286 268 (150-450) k/uL Comprehensive Metabolic Panel 03/20/19 03/21/19 Range/Units 12:02 05:56 Sodium 139 136 L (137-145) mmol/L Potassium 4.6 4.7 (3.5-5.1) mmol/L Chloride 107 104 (98-107) mmol/L Carbon Dioxide 22 25 (22-30) mmol/L BUN 15 15 (7-17) mg/dL Creatinine 0.92 0.75 (0.52-1.04) mg/dL Glucose 101 H 143 H (74-99) mg/dL Calcium 9.3 9.3 (8.4-10.2) mg/dL AST 29 (14-36) U/L ALT 11 (9-52) U/L Alkaline Phosphatase 111 (38-126) U/L Total Protein 7.0 (6.3-8.2) g/dL Albumin 4.1 (3.5-5.0) g/dL Current Medications Generic Name Dose Route Start Last Admin Trade Name Freq PRN Reason Stop Dose Admin Acetaminophen 650 mg 03/20/19 17:53 Tylenol Tab PO Q6HR PRN Mild Pain or Fever > 100.5 Hydrocodone Bitart/Acetaminophen 1 each 03/20/19 17:53 Gilford 5-325 PO Q4HR PRN Moderate Pain Alprazolam 0.25 mg 03/20/19 22:00 03/21/19 09:46 Xanax PO 0.25 mg TID SEBASTIÁN Administration Aspirin 325 mg 03/21/19 09:00 03/21/19 09:46 Aspirin PO 325 mg DAILY [facility] Administration Cyclobenzaprine HCl 5 mg 03/20/19 21:00 03/21/19 09:47 Flexeril PO 5 mg BID SEBASTIÁN Administration Cyclobenzaprine HCl 10 mg 03/20/19 21:00 03/20/19 20:15 Flexeril PO 10 mg HS [facility] Administration Gabapentin 200 mg 03/20/19 21:00 03/21/19 09:46 Neurontin PO 200 mg BID [facility] Administration Levothyroxine Sodium 100 mcg 03/21/19 06:30 03/21/19 05:55 Synthroid PO 100 mcg DAILY@0630 [facility] Administration Lisinopril 5 mg 03/20/19 21:00 03/20/19 20:15 Zestril PO 5 mg HS [facility] Administration Loratadine 10 mg 03/20/19 17:50 Claritin PO DAILY PRN Allergy Symptoms Melatonin 3 mg 03/20/19 17:53 Melatonin PO HS PRN Insomnia Metoprolol Tartrate 50 mg 03/21/19 09:00 03/21/19 11:25 Lopressor PO 50 mg DAILY [facility] Administration Metoprolol Tartrate 25 mg 03/21/19 12:00 Lopressor PO DAILY@1200 [facility] Multivitamins 1 each 03/21/19 12:00 03/21/19 11:25 Theragran PO 1 each DAILY@1200 [facility] Administration Naloxone HCl 0.2 mg 03/20/19 17:53 Narcan IV Q2M PRN Opioid Reversal Nitroglycerin 0.4 mg 03/20/19 14:00 Nitrostat SUBLINGUAL Q5M PRN Chest Pain Non-Formulary Medication 20 mg 03/21/19 09:00 03/21/19 09:49 Glatiramer Acetate [Copaxone] SQ Not Given DAILY [facility] Ondansetron HCl 4 mg 03/20/19 17:53 Zofran IVP Q8HR PRN Nausea And Vomiting Pantoprazole Sodium 40 mg 03/21/19 07:30 03/21/19 09:47 Protonix PO 40 mg [id number] SEBASTIÁN Administration Prednisone 60 mg 03/20/19 18:00 03/21/19 09:46 PO 60 mg DAILY SEBASTIÁN Administration Intake and Output 03/20/19 03/21/19 03/21/19 22:59 06:59 14:59 Other: # Voids 1 1 03/21/19 05:56 03/21/19 05:56 EKG Interpretations (text) Sinus rhythm Assessment and Plan (1) Lightheadedness Current Visit: Yes Status: Acute Code(s): R42 - DIZZINESS AND GIDDINESS SNOMED Code(s): 790725955 (2) Chest pain Current Visit: Yes Status: Acute Code(s): R07.9 - CHEST PAIN, UNSPECIFIED SNOMED Code(s): 09364285 (3) Exertional shortness of breath Current Visit: Yes Status: Acute Code(s): R06.02 - SHORTNESS OF BREATH SNOMED Code(s): 66314002 (4) Pneumonitis Current Visit: Yes Status: Acute Code(s): J18.9 - PNEUMONIA, UNSPECIFIED O RGANISM SNOMED Code(s): 396447136 Plan: Continue current medical therapy. We'll get an echocardiogram. If the echocardiogram is negative for any wall motion abnormalities, no further work cardiac workup at this time. Apparently had a stress test about a year ago that was negative. Follow-up with Dr. SHAINA Hernandez upon discharge
[2019-03-21 12:25] VITALS: PULSE 77
--- NOTE | 2019-03-22 05:54 | DS ---
DISCHARGE SUMMARY DATE OF ADMISSION: 03/20/2019 DATE OF DISCHARGE: 03/21/2019 FINAL DIAGNOSES: 1. Acute exacerbation of intermittent asthma from acute tracheobronchitis. 2. Chronic fibromyalgia. 3. Gastroesophageal reflux disease. 4. Essential hypertension. 5. Primary osteoarthritis. 6. Chronic multiple sclerosis. 7. Hiatal hernia. HOSPITAL COURSE: This patient [place] the beach and felt her asthma flare up. She had some chest tightness and some wheezing. Did use bronchodilators. Did feel better. Slept overnight. Again had some more wheezing and some chest tightness, decided to come into the hospital. Patient's troponins were negative. Seen by Cardiology. Cardiology okayed to be discharged. The patient does follow up with Dr. Emir Moseley from Neurology and this does not appear to be her MS flare up, especially given the respiratory symptoms and better with bronchodilators. She is due to see her neurologist, Dr. Moseley. No change in swallowing. No other focal weakness. PHYSICAL EXAMINATION: On examination, temperature 97.7, pulse 86, respiration 16, blood pressure 138/91, pulse ox 97% on room air. LUNGS: Fair entry. CARDIOVASCULAR: First and second sounds normal. INVESTIGATIONS: White count 7.2, hemoglobin 12.8. BUN and creatinine normal. LDL 115. The 2-D echocardiogram showed EF of 60% to 65%. Chest CTA some nonspecific ground-glass findings. Care was discussed in detail with the patient. Questions were answered. Discussion and discharge planning more than 35 minutes. DISCHARGE MEDICATIONS: 1. Prilosec 20 mg b.i.d. 2. Flexeril 10 mg q.h.s. 3. Copaxone 20 mg subcutaneously daily. 4. Prinivil 5 mg p.o. q.h.s. 5. Multivitamin 1 tablet p.o. daily. 6. Synthroid 100 mcg p.o. daily. 7. Flexeril 5 mg b.i.d. 8. Neurontin 200 mg b.i.d. 9. Ventolin HFA 1 or 2 puffs q.6 p.r.n. 10.Claritin 5 mg p.o. b.i.d. 11.Lopressor 25 mg t.i.d. 12.Prednisone taper. Follow up with Dr. Tushar Hernandez in 1 week. Follow up with Dr. Emir Moseley in 1 week. Follow up with Dr. Thomas Donahue in 3 days. MMODL / IJN: [id number] /
== END 2019-03-21 14:38 | disposition home or self-care (01) ==
LOC: EC 11:37 → 1SOBS 14:21
PROVIDERS: ADMIT Hospitalist; ATTEND Hospitalist
DX: J45.21 Mild intermittent asthma with (acute) exacerbation (principal); J20.9 Acute bronchitis, unspecified; R42 Dizziness and giddiness; G35 Multiple sclerosis; F41.9 Anxiety disorder, unspecified; G47.00 Insomnia, unspecified; Z90.710 Acquired absence of both cervix and uterus; M19.91 Primary osteoarthritis, unspecified site; I10 Essential (primary) hypertension; K44.9 Diaphragmatic hernia without obstruction or gangrene; E03.9 Hypothyroidism, unspecified; K22.70 Barrett's esophagus without dysplasia; R79.1 Abnormal coagulation profile; J45.909 Unspecified asthma, uncomplicated; M79.7 Fibromyalgia; K21.9 Gastro-esophageal reflux disease without esophagitis; M19.90 Unspecified osteoarthritis, unspecified site; Z87.01 Personal history of pneumonia (recurrent); Z90.49 Acquired absence of other specified parts of digestive tract; Z98.1 Arthrodesis status; Z96.652 Presence of left artificial knee joint; Z82.49 Family history of ischemic heart disease and other diseases of the circulatory system; Z79.890 Hormone replacement therapy; Z79.52 Long term (current) use of systemic steroids; Z79.899 Other long term (current) drug therapy; Z88.5 Allergy status to narcotic agent; Z91.018 Allergy to other foods
CPT/HCPCS: 96366 ×3; 96368; 96365; 96375; 99285; 36415; 93005; 93306; 97166; 85379; 83880; 80061; 80053; 80048; 83735 ×2; 84484 ×2; 85025 ×2; 85610; 85730 ×2; 71046; 71275; G0378 ×2; J2060; J1644 ×2; J2930; J0456; J0696; J7512 ×2; Q9967

== ENCOUNTER → 2019-04-26 | Outpatient (CLI) | payer MEDICARE ==
--- NOTE | 2019-04-22 11:41 | US ---
EXAMINATION TYPE: US carotid duplex BILAT DATE OF EXAM: 04/22/2019 COMPARISON: NONE CLINICAL HISTORY: H53.32 DIPLOPIA. HTN controlled with meds. No hx TIA. Dizzy. EXAM MEASUREMENTS: RIGHT: Peak Systolic Velocity (PSV) cm/sec ----- Right CCA: 60.2 ----- Right ICA: 58.1 ----- Right ECA: 66.9 ICA/CCA ratio: 1.0 RIGHT: End Diastole cm/sec ----- Right CCA: 27.1 ----- Right ICA: 28.5 ----- Right ECA: 23.2 LEFT: Peak Systolic Velocity (PSV) cm/sec ----- Left CCA: 81.7 ----- Left ICA: 67.7 ----- Left ECA: 29.4 ICA/CCA ratio: 0.8 LEFT: End Diastole cm/sec ----- Left CCA: 35.4 ----- Left ICA: 34.6 ----- Left ECA: 5.3 VERTEBRALS (direction of flow): Right Vertebral: Antegrade Left Vertebral: Antegrade Rhythm: Normal No elevated velocities, significant stenosis, plaque or wall thickening visualized. IMPRESSION: No sonographically evident hemodynamically significant stenosis within either visualized carotid arterial system. Criteria for Assigning % of Stenosis / Diameter reduction (Estimation based on the indirect measurements of the internal carotid artery velocities (ICA PSV). 1. Normal (no stenosis)=ICA PSV < 125 cm/s: ratio < 2.0: ICA EDV<40 cm/s. 2. Less than 50% stenosis=ICA PSV < 125 cm/s: ratio < 2.0: ICA EDV<40 cm/s. 3. 50 to 69% stenosis=ICA PSV of 125 to 230 cm/s: ration 2.0 ? 4.0: ICA EDV 40-100 cm/s. 4. Greater than 70% stenosis to near occlusion= ICA PSV > 230 cm/s: ratio > 4.0: ICA EDV > 100 cm/s. 5. Near occlusion= ICA PSV velocities may be low or undetectable: variable ratio and ICA EDV. 6. Total occlusion=unable to detect flow.
--- NOTE | 2019-04-27 02:05 | MR ---
EXAMINATION TYPE: MR brain wo/w con DATE OF EXAM: 04/26/2019 COMPARISON: 03/22/2018 HISTORY: Mutiple sclerosis /Diplopia TECHNIQUE: Multiplanar, multisequence images of the brain and brainstem is performed without and with IV contras t, utilizing 7.5 mL intravenous Gadavist . FINDINGS: Ventricles have normal size. There is no mass effect nor midline shift. There is no sign of intracran ial hemorrhage. There is no evidence of cortical infarct. On the T2 and FLAIR images there are multiple nodular foci of increased signal in the white matter of the occipital and posterior parietal lobes. Total number is approximately 20. These measure up to 10 mm. Brainstem is intact. Cerebellum appears normal. Corpus callosum appears normal. Sella turcica is norm al. There are a few high signal white matter foci at the baig-white matter junction of the posterior parietal lobes. There is 4 mm cortical focus increased signal in the right parietal lobe. Contrast images show no pathologic enhancement. There is normal contrast opacification of the venous sinuses. IMPRESSION: Numerous posterior white matter lesions are adjacent to the ventricles and consistent wit h demyelinating disease. No evidence of cortical infarct. There is overall not a significant change c ompared to old MR scan. Vasculitis and chronic small vessel ischemia not excluded.
== END | disposition home or self-care (01) ==
LOC: RADUSWWP 04-22 09:54
PROVIDERS: ATTEND Psychiatry & Neurology Neurology
DX: H53.2 Diplopia (principal); G35 Multiple sclerosis
CPT/HCPCS: 93880; 70553; A9585

== ENCOUNTER → 2019-08-24 | Outpatient (CLI) | payer MEDICARE ==
[2019-08-24 12:48] LABS: HCT 43.4 % (34.0-46.0); HGB 13.8 gm/dL (11.4-16.0); MCH 26.7 pg (25.0-35.0); MCHC 31.9 g/dL (31.0-37.0); MCV 83.7 fL (80.0-100.0); Mean Platelet Volume 7.3; Platelet Count 280 k/uL (150-450); RBC 5.18 m/uL (3.80-5.40); RDW 13.7 % (11.5-15.5); WBC 5.2 k/uL (3.8-10.6)
[2019-08-24 12:59] LABS: Potassium 4.6 mmol/L (3.5-5.1)
== END | disposition home or self-care (01) ==
LOC: LABPAT 11:38
PROVIDERS: ATTEND Internal Medicine Interventional Cardiology
DX: Z01.812 Encounter for preprocedural laboratory examination (principal); Q21.1 Atrial septal defect
CPT/HCPCS: 80051; 82565; 84520; 85027

== ENCOUNTER 2019-08-30 08:45 | Day surgery (SDC) | payer MEDICARE ==
[2019-08-26 08:37] VITALS: BMI 30.3
[~2019-08-30 08:45] MED LIST changes: +ALPRAZolam 0.25 MG TAB PO PRN; +ALPRAZolam 0.5 MG TAB PO PRN; +ASPIRIN 325 MG TAB PO STA; +ATORVASTATIN 80 MG TAB PO STA; -LACTATED RINGERS 1,000 ML IV SCH; -LIDOCAINE 1% 20 ML VIAL (10MG/ML) FOR IV START INTRADERMA PRN; +NITROGLYCERIN SL TABS 0.4 MG TAB SUBLINGUAL PRN; +SODIUM CHLORIDE 0.9% 1,000 ML in EMPTY BAG 1 BAG IV ONE
[2019-08-30] MEDS ORDERED: HEPARIN SODIUM 1,000 UN/ML (10ML VL) ONE (09:46)
[2019-08-30] MEDS ORDERED: LIDOCAINE 1% INJ 10MG/ML (20 ML MDV) ONE (09:46)
[2019-08-30] MEDS ORDERED: fentaNYL (PF) 50 MCG/ML 2 ML AMP ONE (09:46)
[2019-08-30] MEDS ORDERED: IV FLUID CONTINUATION 900 ML IV ONE (10:00)
[2019-08-30] MEDS ORDERED: MIDAZOLAM 2 MG/2 ML VIAL IV ONE (10:09)
[2019-08-30] MEDS: fentaNYL (PF) 50 MCG/ML 2 ML AMP IV ONE ×2 (10:09→10:29)
[2019-08-30] MEDS ORDERED: LIDOCAINE 1% INJ 10MG/ML (20 ML MDV) SQ ONE (10:09)
[2019-08-30] MEDS ORDERED: IOPAMIDOL-370 50ML BTL INJ ONE (10:35)
[2019-08-30] MEDS ORDERED: CLOPIDOGREL 75 MG TAB ONE (10:36)
[2019-08-30] MEDS ORDERED: CLOPIDOGREL 75 MG TAB PO ONE (10:45)
[2019-08-30] MEDS ORDERED: SODIUM CHLORIDE 0.9% 1,000 ML IV SCH (11:00)
--- NOTE | 2019-08-30 11:36 | AN ---
ANGIOGRAPHY REPORT PFO CLOSURE: DATE OF SERVICE: 08/30/2019 PERFORMING PHYSICIAN: Sarmad Rizzo MD. PROCEDURE PERFORMED: 1. Intracardiac echocardiogram imaging. 2. Successful percutaneous closure of patent foramen ovale using 25 mm Amplatzer PFO occluder with an excellent results and without any residual shunt. 3. Right atrial angiogram. INDICATION: This is a 59-year-old female patient who sees Dr. Hernandez in the office as an outpatient as well as sees Dr. Flowers, and suffered from TIA/stroke recently when she was visiting in [place], [place]. She underwent a CHUCHO by Dr. Maynard and that revealed patent foramen ovale with evidence of [id number] shunt. She was brought today to undergo a PFO closure. APPROACH: Right common femoral vein. COMPLICATION: None. LEVEL OF SEDATION: Moderate with sedation length of 33 minutes. PROCEDURE DESCRIPTION: After obtaining an informed consent, the patient was brought to the cardiac veterinary laboratory technician. The right common femoral vein was cannulated twice using micropuncture needle, under ultrasound guidance, the micropuncture wire passed easily then I placed an 8-Ugandan 11 cm sheath in the right common femoral vein. At that point, anticoagulation was initiated using heparin and the patient was given weight-based heparin with 8000 units of heparin. Subsequently, I did intracardiac echocardiogram images using the Ice machine which was advanced through the venous sheath all the way to the right atrium. I did interrogate the interatrial septum as well and found the patent foramen ovale with [id number] shunt. Based on the color-flow Doppler, I decided to pursue with 25 mm Amplatzer PFO occluder. At that point, I did cross the PFO using 0.035 J-wire with multipurpose catheter. The J-wire was advanced to the left upper pulmonary vein. After that, I did exchange my 0.035 J-wire into a stiff Amplatzer wire using the multipurpose catheter. Subsequently, I decided to go with 25 mm Amplatzer PFO occluder. The shuttle sheath was prepped and flushed using saline. Subsequently, the device was loaded into the oven unloader. After that, I did advance the sheath over the Amplatzer wire to the left atrium. I did deploy the left atrial occluder first and subsequently the sheath was pulled out until the left atrial occluder attached the interatrial septum. Subsequently, I did deploy the right atrial occluder. After assessing the aorta and the SVC, we decided to release the device. The cable was released and I did interrogation using Ice as well as using intracardiac echocardiogram images and that showed no evidence of residual shunt. The procedure was completed at that point without any complication. Before I completed the procedure, I did right atrial angiogram. POSTPROCEDURE MANAGEMENT: 1. Dual anti-platelet therapy. 2. An echocardiogram. 3. Monitor for arrhythmia. 4. Follow up with the patient. MMKAMARI / IJN: [id number] /
[2019-08-30] MEDS ORDERED: LORATADINE 10 MG TAB PO PRN (16:18)
[2019-08-30] MEDS ORDERED: ALBUTEROL NEBULIZED 2.5 MG/3 ML INHALATION PRN (16:18)
[2019-08-30] MEDS ORDERED: METOPROLOL TARTRATE 25 MG TAB PO SCH (17:00)
[2019-08-30] MEDS: CYCLOBENZAPRINE 5 MG TAB PO SCH (17:17)
[2019-08-30] MEDS: PANTOPRAZOLE 40 MG TABLET PO SCH (17:17)
[2019-08-30] MEDS: GABAPENTIN 100 MG CAP PO SCH ×2 (17:17→22:00)
[2019-08-30] MEDS ORDERED: ACETAMINOPHEN TAB 325 MG TAB PO PRN (20:00)
[2019-08-30] MEDS ORDERED: LISINOPRIL 5 MG TAB PO SCH (21:00)
[2019-08-30] MEDS ORDERED: CYCLOBENZAPRINE 10 MG TAB PO SCH (21:00)
[2019-08-31] MEDS ORDERED: LEVOTHYROXINE 100 MCG TAB PO SCH (06:30)
[2019-08-31 08:30] VITALS: RESP 20
[2019-08-31] MEDS: GABAPENTIN 100 MG CAP PO SCH (08:38)
[2019-08-31] MEDS: PANTOPRAZOLE 40 MG TABLET PO SCH (08:39)
[2019-08-31] MEDS: CYCLOBENZAPRINE 5 MG TAB PO SCH (08:39)
--- NOTE | 2019-08-31 08:58 | XR ---
EXAMINATION TYPE: XR chest 2V DATE OF EXAM: 08/31/2019 COMPARISON: 03/20/2019 INDICATION: ASD PFO placement TECHNIQUE: Frontal and lateral views of the chest are obtained. FINDINGS: The heart size is normal. The pulmonary vasculature is normal. The lungs are clear. EKG leads overlie the chest. IMPRESSION: 1. No acute pulmonary process.
[2019-08-31] MEDS ORDERED: ATORVASTATIN 40 MG TAB PO SCH (09:00)
[2019-08-31] MEDS ORDERED: CLOPIDOGREL 75 MG TAB PO SCH (09:00)
[2019-08-31] MEDS ORDERED: METOPROLOL TARTRATE 50 MG TAB PO SCH (09:00)
[2019-08-31] MEDS ORDERED: CHOLECALCIFEROL 1,000 UNIT TAB PO SCH (09:00)
[2019-08-31] MEDS ORDERED: ASPIRIN 325 MG TAB PO SCH (09:00)
[2019-08-31] MEDS ORDERED: MAGNESIUM OXIDE 400 MG TAB PO SCH (09:00)
[2019-08-31] MEDS ORDERED: NON FORMULARY DRUG (Omega-3 Fatty Acids/Fish Oil [Fish Oil 1,000 Mg Softgel] 1 EACH) PO SCH (09:00)
[2019-08-31 11:43] VITALS: BP 122/82; PULSE 58; TEMP 98.3
--- NOTE | 2019-08-31 12:00 | ECHOF ---
Referral Reason:Post ASD/PFO Insertion MEASUREMENTS -------- HEIGHT: 165.1 cm WEIGHT: 87.5 kg BP: 121/73 RVIDd: 2.6 cm (< 3.3) IVSd: 1.2 cm (0.6 - 1.1) LVIDd: 2.5 cm (3.9 - 5.3) LVPWd: 1.4 cm (0.6 - 1.1) IVSs: 1.5 cm LVIDs: 1.1 cm LVPWs: 1.5 cm LAESV Index (A-L): 15.47 ml/m Ao Diam: 3.8 cm (2.0 - 3.7) AV Cusp: 2.5 cm (1.5 - 2.6) LA Diam: 3.1 cm (2.7 - 3.8) MV EXCURSION: 9.718 mm (> 18.000) MV EF SLOPE: 37 mm/s (70 - 150) EPSS: 0.3 cm MV E Jevon: 0.49 m/s MV DecT: 185 ms MV A Jevon: 0.80 m/s MV E/A Ratio: 0.61 AR PHT: 344 ms RAP: 5.00 mmHg RVSP: 10.73 mmHg FINDINGS -------- Sinus rhythm. This was a technically adequate study. The left ventricular size is normal. There is mild concentric left ventricular hypertrophy. Overa ll left ventricular systolic function is normal with, an EF between 55 - 60 %. The diastolic fillin g pattern is normal for the age of the patient 11.52. The right ventricle is normal in size. The left atrial size is normal. Normal LA size by volume 22+/-6 ml/m2. The right atrial size is normal. There is an interatrial closure device in place without evidence of shunt. The aortic valve is trileaflet and appears structurally normal. Trace amount of aortic regurgitatio n. The mitral valve is normal. The mitral valve leaflets are mildly thickened. There is trace mitral regurgitation. The tricuspid valve appears structurally normal. Trace tricuspid regurgitation present. Right fani tricular systolic pressure is normal at < 35 mmHg. There is no pulmonic regurgitation present. The aortic root is dilated measuring 3.8 cm. Normal inferior vena cava with normal inspiratory collapse consistent with estimated right atrial pre ssure of 5 mmHg. There is no pericardial effusion. CONCLUSIONS -------- 1. Sinus rhythm. 2. This was a technically adequate study. 3. The left ventricular size is normal. 4. There is mild concentric left ventricular hypertrophy. 5. Overall left ventricular systolic function is normal with, an EF between 55 - 60 %. 6. The diastolic filling pattern is normal for the age of the patient 11.52 7. The right ventricle is normal in size. 8. The left atrial size is normal. 9. Normal LA size by volume 22+/-6 ml/m2. 10. The right atrial size is normal. 11. There is an interatrial closure device in place without evidence of shunt. 12. The aortic valve is trileaflet and appears structurally normal. 13. Trace amount of aortic regurgitation. 14. The mitral valve is normal. 15. The mitral valve leaflets are mildly thickened. 16. There is trace mitral regurgitation. 17. The tricuspid valve appears structurally normal. 18. Trace tricuspid regurgitation present. 19. Right ventricular systolic pressure is normal at < 35 mmHg. 20. There is no pulmonic regurgitation present. 21. The aortic root is dilated measuring 3.8 cm. 22. Normal inferior vena cava with normal inspiratory collapse consistent with estimated right atrial pressure of 5 mmHg. 23. There is no pericardial effusion. FLATLOCK SEWING MACHINE OPERATOR: Leeanna Aguero RDCS
--- NOTE | 2019-09-01 07:34 | P.DS ---
Providers Date of admission: August 302018 Attending physician: Sarmad Rizzo Primary care physician: Thomas Wills [facility] Course: This is a very pleasant 59-year-old female patient who sees Dr. Hernandez in the office as an outpatient who underwent on 08/30/2019 successful percutaneous closure of patent foramen ovale using 25 mm Amplatzer PFO occluder with an excellent results and without any residual shunt from right groin approach. The patient has done well overnight. No arrhythmia noted. The right groin is soft and nontender was very mild bruises. The patient is going to be discharged home on dual antiplatelet therapy and she will be seen in the office as an outpatient by Dr. Hernandez. An echocardiogram was performed the following day and that showed good placement of the device and without any residual shunt. Patient Condition at Discharge: Stable Plan - Discharge Summary Discharge Rx Participant: Yes New Discharge Prescriptions: Continue Omeprazole [PriLOSEC] 20 mg PO BID Lisinopril [Prinivil] 5 mg PO HS Cyclobenzaprine [Flexeril] 10 mg PO HS Levothyroxine Sodium [Synthroid] 100 mcg PO DAILY Cyclobenzaprine [Flexeril] 5 mg PO BID Gabapentin [Neurontin] 200 mg PO BID Albuterol Inhaler [Ventolin Hfa Inhaler] 1 - 2 puff INHALATION Q6HR PRN #1 inhaler PRN Reason: Wheezing Metoprolol Tartrate [Lopressor] 50 mg PO QAM Loratadine [Claritin] 5 mg PO DAILY PRN PRN Reason: Allergic Reaction Cholecalciferol [Vitamin D3 (25 Mcg = 1000 Iu)] 1,000 unit PO DAILY Metoprolol Tartrate [Lopressor] 25 mg PO 1700 Phoenix-3 Fatty Acids/Fish Oil [Fish Oil 1,000 mg Softgel] 1 each PO DAILY Magnesium 1 dose PO DAILY Clopidogrel [Plavix] 75 mg PO DAILY Atorvastatin Calcium [Lipitor] 40 mg PO Q48H Aspirin [Adult Low Dose Aspirin EC] 81 mg PO DAILY Discharge Medication List Omeprazole [PriLOSEC] 20 mg PO BID 10/17/14 [History] Cyclobenzaprine [Flexeril] 10 mg PO HS 12/29/16 [History] Lisinopril [Prinivil] 5 mg PO HS 12/29/16 [History] Levothyroxine Sodium [Synthroid] 100 mcg PO DAILY 02/16/17 [History] Cyclobenzaprine [Flexeril] 5 mg PO BID 03/20/19 [History] Gabapentin [Neurontin] 200 mg PO BID 03/20/19 [History] Albuterol Inhaler [Ventolin Hfa Inhaler] 1 - 2 puff INHALATION Q6HR PRN #1 inhaler 03/21/19 [Rx] Aspirin [Adult Low Dose Aspirin EC] 81 mg PO DAILY 08/26/19 [History] Atorvastatin Calcium [Lipitor] 40 mg PO Q48H 08/26/19 [History] Cholecalciferol [Vitamin D3 (25 Mcg = 1000 Iu)] 1,000 unit PO DAILY 08/26/19 [History] Clopidogrel [Plavix] 75 mg PO DAILY 08/26/19 [History] Loratadine [Claritin] 5 mg PO DAILY PRN 08/26/19 [History] Magnesium 1 dose PO DAILY 08/26/19 [History] Metoprolol Tartrate [Lopressor] 25 mg PO 1700 08/26/19 [History] Metoprolol Tartrate [Lopressor] 50 mg PO QAM 08/26/19 [History] Phoenix-3 Fatty Acids/Fish Oil [Fish Oil 1,000 mg Softgel] 1 each PO DAILY 08/26/19 [History] Follow up Appointment(s)/Referral(s): [facility] [Provider Group] - 09/03/20 11:00 am (Thursday) Cindy Hernandez MD [STAFF PHYSICIAN] - 02/28/20 2:30 pm (Thursday) Sarmad Rizzo MD [STAFF PHYSICIAN] - 09/05/19 2:15 pm (Thursday with DEDICATED LOCAL TRUCK DRIVER) Brenna Hubbard NPC [Nurse Practitioner] - 10/11/19 9:00 am (Thursday) Discharge Disposition: HOME SELF-CARE
== END 2019-08-31 15:05 | disposition home or self-care (01) ==
LOC: CATHCVL 08:45 → 3SCARD 10:40 → CATHCVL 08-31 15:05
PROVIDERS: ATTEND Internal Medicine Interventional Cardiology
DX: Q21.1 Atrial septal defect (principal); Z79.890 Hormone replacement therapy; Z79.899 Other long term (current) drug therapy; Z79.82 Long term (current) use of aspirin; Z79.02 Long term (current) use of antithrombotics/antiplatelets
CPT/HCPCS: 93306; 93581; 86900; 86901; 86850; 71046; C1769 ×4; C1894; C1817; C1759; J2250; J0690; J2001; J3010; J1644; Q9967

== ENCOUNTER → 2019-10-25 | Outpatient (CLI) | payer MEDICARE ==
--- NOTE | 2019-10-25 10:19 | CT ---
EXAMINATION TYPE: CT chest wo con DATE OF EXAM: 10/25/2019 COMPARISON: CT chest dated 03/20/[address] abdomen pelvis dated 12/21/2015 HISTORY: Solitary pulmonary nodule CT DLP: 431.80 mGycm. Automated Exposure Control for Dose Reduction was Utilized. TECHNIQUE: CT scan of the thorax is performed without IV contrast. FINDINGS: LUNGS: The previously seen vague 7 mm left pulmonary nodule on the exam of 03/20/2019 is more clearly d efined on today's examination as there is lack of respiratory motion on today's exam. This measures 9 x 7 mm and is seen on series 4 image 45. There is adjacent pleural parenchymal scarring relating to the medial pleural surface. Few areas of scattered subsegmental atelectasis are seen. No additional p ulmonary nodule. There is no pleural effusion or pneumothorax seen. The tracheobronchial tree is pat ent. MEDIASTINUM: Lack of IV contrast is noted to limit evaluation for mediastinal and especially hilar ad enopathy. Upper limits of normal size of the ascending thoracic aorta measuring 4.0 cm. Aortic root m easures 3.2 cm and is within normal limits. There are no definitive greater than 1 cm hilar or medias tinal lymph nodes. No cardiomegaly or pericardial effusion is seen. There are few coronary artery c alcifications. OTHER: Gallbladder surgically absent. Few pancreatic parenchymal calcifications indicative of chronic pancreatitis. No current peripancreatic no fat stranding. Mild multilevel degenerative change of the spine. IMPRESSION: Left basilar pulmonary nodule has demonstrated mild interval growth in comparison to the prior 2008 but was not seen on the exam of 2015. This would be difficult for percutaneous biopsy give n the adjacent hemidiaphragm. PET/CT could be considered given the size of pulmonary nodule now measu res 9 x 7 mm.
== END | disposition home or self-care (01) ==
LOC: RADCTMAIN 07:54
PROVIDERS: ATTEND Nurse Practitioner Adult Health
DX: R91.1 Solitary pulmonary nodule (principal)
CPT/HCPCS: 71250

== ENCOUNTER 2020-01-16 11:27 | Emergency (ER) | payer MEDICARE ==
[2020-01-16 11:33] VITALS: TEMP 98.3
--- NOTE | 2020-01-16 12:21 | CT ---
EXAMINATION TYPE: CT brain jairo wo con DATE OF EXAM: 01/16/2020 COMPARISON: 10/30/2011 HISTORY: headache and neck pain post fall with blow to right frontal bone CT DLP: 1414.4 mGycm. Automated Exposure Control for Dose Reduction was Utilized. TECHNIQUE: CT scan of the head and cervical spine are performed without contrast. FINDINGS: There is no acute intracranial hemorrhage, mass effect, or midline shift identified. The ventricles and sulci are within normal limits in size. The globes are intact and the visualized sin uses are clear other than very scant mucosal thickening and an accessory right sphenoid sinus. Right frontal contusion and scalp soft tissues is seen on image 28. Cervical spine is visualized in its entirety from C1 through upper thoracic levels and demonstrates s atisfactory alignment without evidence of acute fracture or dislocation. Multilevel degenerative disc disease is moderate of the mid cervical spine most pronounced at C3-C4, C4-C5 and C5-C6. Prevertebra l soft tissue appears within normal limits. Uncovertebral projecting facet arthropathy are seen at mu ltilevels. The C1-C2 articulation is unremarkable. 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 IMPRESSION: 1. There is no acute fracture or dislocation evident in the cervical spine. Moderate degenerative dis c disease of the cervical spine. 2. Right frontal scalp contusion. No acute intracranial hemorrhage, mass effect, or midline shift is seen.
--- NOTE | 2020-01-16 12:24 | ED ---
General Adult HPI - General Chief complaint: Fall Stated complaint: fell and hit head Time Seen by Provider: 01/16/20 11:35 Source: patient, family, RN notes reviewed Mode of arrival: ambulatory Limitations: no limitations - History of Present Illness Initial comments: 59-year-old female currently on Plavix presents to the emergency determine for a chief complaint of head injury. Patient states that she has MS and occasionally trips. States that she was running towards the house when she tripped yesterday and fell hitting her head against the side of the house. She did not lose consciousness. She has mild neck pain but states she always has this pain because of her arthritis. She does not believe she has any new pain. Patient states she had some slight dizziness earlier this running with a has since resolved. She called her doctor who recommended she come to the emergency department for a CAT scan given that she takes Plavix. She denies visual changes, admits to minimal headache. Patient has no other complaints at this time including shortness of breath, chest pain, abdominal pain, nausea or vomiting, or visual changes. - Related Data Home Medications Medication Instructions Recorded Confirmed Omeprazole [PriLOSEC] 20 mg PO BID 10/17/14 08/30/19 Cyclobenzaprine [Flexeril] 10 mg PO HS 12/29/16 08/30/19 Lisinopril [Prinivil] 5 mg PO HS 12/29/16 08/30/19 Levothyroxine Sodium [Synthroid] 100 mcg PO DAILY 02/16/17 08/30/19 Cyclobenzaprine [Flexeril] 5 mg PO BID 03/20/19 08/30/19 Gabapentin [Neurontin] 200 mg PO BID 03/20/19 08/30/19 Aspirin [Adult Low Dose Aspirin EC] 81 mg PO DAILY 08/26/19 08/30/19 Atorvastatin Calcium [Lipitor] 40 mg PO Q48H 08/26/19 08/30/19 Cholecalciferol [Vitamin D3 (25 1,000 unit PO DAILY 08/26/19 08/30/19 Mcg = 1000 Iu)] Clopidogrel [Plavix] 75 mg PO DAILY 08/26/19 08/30/19 Loratadine [Claritin] 5 mg PO DAILY PRN 08/26/19 08/30/19 Magnesium 1 dose PO DAILY 08/26/19 08/30/19 Metoprolol Tartrate [Lopressor] 25 mg PO 1700 08/26/19 08/30/19 Metoprolol Tartrate [Lopressor] 50 mg PO QAM 08/26/19 08/30/19 [place]ena-3 Fatty Acids/Fish Oil [Fish 1 each PO DAILY 08/26/19 08/30/19 Oil 1,000 mg Softgel] Previous Rx's Medication Instructions Recorded Albuterol Inhaler (Mhu) [Ventolin 1 - 2 puff INHALATION Q6HR PRN #1 03/21/19 Hfa Inhaler (Mhu)] inhaler Allergies Allergy/AdvReac Type Severity Reaction Status Date / Time coconut Allergy Anaphylaxis Verified 01/16/20 11:33 codeine AdvReac Nausea & Verified 01/16/20 11:33 Vomiting Review of Systems ROS Statement: Those systems with pertinent positive or pertinent negative responses have been documented in the HPI. ROS Other: All systems not noted in ROS Statement are negative. Past Medical History Past Medical History: Asthma, CVA/TIA, Fibromyalgia, GERD/Reflux, Hypertension, Osteoarthritis (OA), Pneumonia, Thyroid Disorder Additional Past Medical History / Comment(s): Multiple sclerosis, allergy induced asthma, hiatal hernia, Patton's esophagus History of Any Multi-Drug Resistant Organisms: None Reported Past Surgical History: Appendectomy, Back Surgery, Cholecystectomy, Hysterectomy, Joint Replacement, Tonsillectomy Additional Past Surgical History / Comment(s): spinal fusion, left knee replacement Past Anesthesia/Blood Transfusion Reactions: Postoperative Nausea & Vomiting (PONV) Past Psychological History: No Psychological Hx Reported Smoking Status: Never smoker Past Alcohol Use History: Rare Past Drug Use History: None Reported - Past Family History Father Additional Family Medical History / Comment(s): PPM. All of his brothers and sisters had heart disease Sister(s) Additional Family Medical History / Comment(s): Hx lupus Brother(s) Family Medical History: Coronary Artery Disease (CAD) Daughter(s) Family Medical History: Thyroid Disorder Son(s) Family Medical History: Hypertension General Exam Limitations: no limitations General appearance: alert, in no apparent distress Head exam: Present: normocephalic. Absent: atraumatic (Patient has a small hematoma noted on the right frontal bone.) Eye exam: Present: normal appearance, PERRL, EOMI. Absent: scleral icterus, conjunctival injection, periorbital swelling ENT exam: Present: normal exam, mucous membranes moist Neck exam: Present: tenderness (Minimal paraspinal tenderness.), other (C-collar in place). Absent: meningismus, lymphadenopathy Respiratory exam: Present: normal lung sounds bilaterally. Absent: respiratory distress, wheezes, rales, rhonchi, stridor Cardiovascular Exam: Present: regular rate, normal rhythm, normal heart sounds. Absent: systolic murmur, diastolic murmur, rubs, gallop, clicks Neurological exam: Present: alert, oriented X3, normal gait, other (GCS 15) Course Vital Signs 01/16/20 01/16/20 11:30 12:26 Temperature 98.3 F Pulse Rate 68 72 Respiratory 20 16 Rate Blood Pressure 140/81 120/82 O2 Sat by Pulse 99 100 Oximetry Medical Decision Making - Medical Decision Making CT cervical spine shows no acute fracture or dislocation. There is moderate degenerative disc disease of the cervical spine. There is also a right frontal scalp contusion. No acute intercranial hemorrhage, mass effect, or midline shift seen. Patient reevaluated, continues to be well-appearing. Sitting up in bed. C-collar was removed after cervical spine clearance. Patient will follow up with primary care in 1-2 days. She will return here to the emergency department for any worsening symptoms. Disposition Clinical Impression: Head injury Disposition: HOME SELF-CARE Condition: Good Instructions (If sedation given, give patient instructions): Head Injury (ED) Additional Instructions: Please take Tylenol for pain. Follow-up with primary care in 1-2 days. If you have any worsening symptoms return to the emergency department. Is patient prescribed a controlled substance at d/c from ED?: No Referrals: Thomas Donahue MD [Primary Care Provider] - 1-2 days Time of Disposition: 12:33
[2020-01-16 12:28] VITALS: BP 120/82; PULSE 72; RESP 16
[2020-01-16] MEDS ORDERED: ACETAMINOPHEN TAB 500 MG TAB PO STA (12:39)
== END 2020-01-16 12:46 | disposition home or self-care (01) ==
LOC: EC 11:27
DX: S00.03XA Contusion of scalp, initial encounter (principal); M50.30 Other cervical disc degeneration, unspecified cervical region; K21.9 Gastro-esophageal reflux disease without esophagitis; I10 Essential (primary) hypertension; E07.9 Disorder of thyroid, unspecified; Z79.02 Long term (current) use of antithrombotics/antiplatelets; Z79.82 Long term (current) use of aspirin; Z79.890 Hormone replacement therapy; Z79.899 Other long term (current) drug therapy; Z88.5 Allergy status to narcotic agent; Z91.018 Allergy to other foods; Z86.73 Personal history of transient ischemic attack (TIA), and cerebral infarction without residual deficits; W18.09XA Striking against other object with subsequent fall, initial encounter
CPT/HCPCS: 70450; 72125; 99283

== ENCOUNTER 2020-01-17 09:17 | Emergency (ER) | payer MEDICARE ==
--- NOTE | 2020-01-17 09:46 | CT ---
EXAMINATION TYPE: CT brain wo con DATE OF EXAM: 01/17/2020 COMPARISON: 01/16/2020 HISTORY: fall yesterday, near syncope today CT DLP: 1099.[address] of the brain was performed. The ventricles, basal cisterns and sulci overlying the cerebral convexities demonstrate mild enlargem ent. There is no evidence for intracranial hemorrhage or sulcal effacement. There is decreased attenuation about the periventricular white matter and deep white matter of both c erebral hemispheres, compatible with chronic small vessel ischemia. Differential diagnosis does inclu de demyelination. No mass effects are seen.No midline shift. Osseous calvarium is intact. Right frontal scalp hematoma redemonstrated. If symptoms persist consider MRI. IMPRESSION: 1. Age related atrophic and chronic small vessel ischemic change without acute intracranial process s een at this time.
[2020-01-17] MEDS ORDERED: HYDROmorphone 0.5 MG/0.5 ML SYRINGE IM STA (09:50)
[2020-01-17] MEDS ORDERED: ONDANSETRON 4 MG ODT STARTER PACK 2 TAB BTL PO STA (09:51)
--- NOTE | 2020-01-17 09:52 | ED ---
Head Injury HPI - General Chief complaint: Head Injury Stated complaint: nausea Time Seen by Provider: 01/17/20 09:26 Source: patient Mode of arrival: wheelchair Limitations: no limitations - History of Present Illness Initial comments: 59-year-old female with history of myasthenia gravis, hypertension, fibromyalgia, previous TIA on Plavix presenting to the emergency department today for chief complaint of persistent headache after head injury. Patient states she fell yesterday tripping striking her head on her home. Patient states she now has a bruise on the right aspect of her upper forehead and swelling over the central forehead she states she feels that the swelling is traveling downwards. Patient states she has headache today she states she developed photophobia and some nausea. She states she was concerned as she is on a blood thinner and presented for reevaluation of head injury. Patient denies weakness of the upper or lower extremity sensation deficits vision loss diplopia speech or stroke like symptoms. Describes pain as more head pain than a severe headache, tender to touch. Patient appears well on arrival. Denies abdominal pain, chest pain, shortness of breath. Patient states she is still sore from her fall. Remaining ROS (-). - Related Data Home Medications Medication Instructions Recorded Confirmed Omeprazole [PriLOSEC] 20 mg PO BID 10/17/14 08/30/19 Cyclobenzaprine [Flexeril] 10 mg PO HS 12/29/16 08/30/19 Lisinopril [Prinivil] 5 mg PO HS 12/29/16 08/30/19 Levothyroxine Sodium [Synthroid] 100 mcg PO DAILY 02/16/17 08/30/19 Cyclobenzaprine [Flexeril] 5 mg PO BID 03/20/19 08/30/19 Gabapentin [Neurontin] 200 mg PO BID 03/20/19 08/30/19 Aspirin [Adult Low Dose Aspirin EC] 81 mg PO DAILY 08/26/19 08/30/19 Atorvastatin Calcium [Lipitor] 40 mg PO Q48H 08/26/19 08/30/19 Cholecalciferol [Vitamin D3 (25 1,000 unit PO DAILY 08/26/19 08/30/19 Mcg = 1000 Iu)] Clopidogrel [Plavix] 75 mg PO DAILY 08/26/19 08/30/19 Loratadine [Claritin] 5 mg PO DAILY PRN 08/26/19 08/30/19 Magnesium 1 dose PO DAILY 08/26/19 08/30/19 Metoprolol Tartrate [Lopressor] 25 mg PO 1700 08/26/19 08/30/19 Metoprolol Tartrate [Lopressor] 50 mg PO QAM 08/26/19 08/30/19 Shepherd-3 Fatty Acids/Fish Oil [Fish 1 each PO DAILY 08/26/19 08/30/19 Oil 1,000 mg Softgel] Previous Rx's Medication Instructions Recorded Albuterol Inhaler (Mhu) [Ventolin 1 - 2 puff INHALATION Q6HR PRN #1 03/21/19 Hfa Inhaler (Mhu)] inhaler Allergies/Adverse reactions: Allergies Allergy/AdvReac Type Severity Reaction Status Date / Time coconut Allergy Anaphylaxis Verified 01/17/20 09:24 codeine AdvReac Nausea & Verified 01/17/20 09:24 Vomiting Review of Systems ROS Statement: Those systems with pertinent positive or pertinent negative responses have been documented in the HPI. ROS Other: All systems not noted in ROS Statement are negative. Past Medical History Past Medical History: Asthma, CVA/TIA, Fibromyalgia, GERD/Reflux, Hypertension, Osteoarthritis (OA), Pneumonia, Thyroid Disorder Additional Past Medical History / Comment(s): Multiple sclerosis, allergy induced asthma, hiatal hernia, Patton's esophagus History of Any Multi-Drug Resistant Organisms: None Reported Past Surgical History: Appendectomy, Back Surgery, Cholecystectomy, Hysterectomy, Joint Replacement, Tonsillectomy Additional Past Surgical History / Comment(s): spinal fusion, left knee replacement, pfo closure(heart) Past Anesthesia/Blood Transfusion Reactions: Postoperative Nausea & Vomiting (PONV) Past Psychological History: No Psychological Hx Reported Smoking Status: Never smoker Past Alcohol Use History: Rare Past Drug Use History: None Reported - Past Family History Father Additional Family Medical History / Comment(s): PPM. All of his brothers and sisters had heart disease Sister(s) Additional Family Medical History / Comment(s): Hx lupus Brother(s) Family Medical History: Coronary Artery Disease (CAD) Daughter(s) Family Medical History: Thyroid Disorder Son(s) Family Medical History: Hypertension General Exam - General Exam Comments Initial Comments: General: The patient is awake and alert, in no distress, and does not appear acutely ill. Eye: Pupils are equal, round and reactive to light, extra-ocular movements are intact. No nystagmus. There is normal conjunctiva bilaterally. No signs of icterus. Ears, nose, mouth and throat: There are moist mucous membranes and no oral lesions. Neck: The neck is supple, there is no tenderness or JVD. Cardiovascular: There is a regular rate and rhythm. No murmur, rub or gallop is appreciated. Respiratory: Lungs are clear to auscultation, respirations are non-labored, breath sounds are equal. No wheezes, stridor, rales, or rhonchi. Gastrointestinal: Soft, non-distended, non-tender abdomen without masses or organomegaly noted. There is no rebound or guarding present. No CVA tenderness. Bowel sounds are unremarkable.] Musculoskeletal: Normal ROM, no tenderness. Strength 5/5. Sensation intact. Pulses equal bilaterally 2+. Neurological: A&O x 3. CN II-XII intact, There are no obvious motor or sensory deficits. Coordination appears grossly intact. Speech is normal. Skin: Skin is warm and dry and no rashes or lesions are noted. Psychiatric: Cooperative, appropriate mood & affect, normal judgment. Limitations: no limitations Course Vital Signs 01/17/20 01/17/20 01/17/20 09:21 10:41 11:09 Temperature 97.9 F Pulse Rate 85 55 L 55 L Respiratory 18 16 Rate Blood Pressure 137/85 97/68 103/79 O2 Sat by Pulse 100 99 95 Oximetry 01/17/20 11:49 Temperature 98.2 F Pulse Rate 58 L Respiratory 18 Rate Blood Pressure 108/75 O2 Sat by Pulse 97 Oximetry - Reevaluation(s) Reevaluation #1: Pt states she felt weird from dilaudid-- patient sweating/lightheaded--BP low appears vasovagal-- returned with positioning. Fluids initiated. CT results discussed. Patient has no focal neurological deficits; appears well. 01/17/20 10:48 Medical Decision Making - Medical Decision Making 59-year-old feel presented for head pain after fall. Photophobia. Nausea. CT repeated given patient is on Plavix to evaluate for delayed bleed. CT with out acute findings. Patient is no focal neurological deficits. Patient appears well, i feel she most likely has a concussion given her hx and symptoms. Patient agreeable. Recommended neurology and pcp f/u. Patient discharged appearing well after discussing case including patient course with attending provider Dr. Reeves Disposition Clinical Impression: Head injury, Headache, Concussion Disposition: HOME SELF-CARE Condition: Good Instructions (If sedation given, give patient instructions): Concussion (ED) Additional Instructions: Please use medication as discussed. Please follow-up with family doctor in the next 2 days. Please return to emergency room if the symptoms increase or worsen or for any other concerns. Is patient prescribed a controlled substance at d/c from ED?: No Referrals: Thomas Donahue MD [Primary Care Provider] - 1-2 days Time of Disposition: 09:52
[2020-01-17 11:50] VITALS: BP 108/75; PULSE 58; RESP 18; TEMP 98.2
== END 2020-01-17 12:11 | disposition home or self-care (01) ==
LOC: EC 09:17
DX: S06.0X9A Concussion with loss of consciousness of unspecified duration, initial encounter (principal); K21.9 Gastro-esophageal reflux disease without esophagitis; I10 Essential (primary) hypertension; E07.9 Disorder of thyroid, unspecified; G35 Multiple sclerosis; G70.00 Myasthenia gravis without (acute) exacerbation; Z79.82 Long term (current) use of aspirin; Z79.02 Long term (current) use of antithrombotics/antiplatelets; Z79.899 Other long term (current) drug therapy; Z79.890 Hormone replacement therapy; Z88.5 Allergy status to narcotic agent; Z91.018 Allergy to other foods; Z86.73 Personal history of transient ischemic attack (TIA), and cerebral infarction without residual deficits; W01.198A Fall on same level from slipping, tripping and stumbling with subsequent striking against other object, initial encounter; Y92.009 Unspecified place in unspecified non-institutional (private) residence as the place of occurrence of the external cause
CPT/HCPCS: 93005; 70450; 99284; 96372; S0119; J1170

== ENCOUNTER → 2020-02-22 | Outpatient (CLI) | payer MEDICARE ==
--- NOTE | 2020-02-22 09:09 | CT ---
EXAMINATION TYPE: CT chest w con DATE OF EXAM: 02/22/2020 COMPARISON: 10/25/2019 HISTORY: Lung nodule CT DLP: 643 mGycm, Automated exposure control for dose reduction was used. CONTRAST: Performed injected with 100 ml mL of Isovue 300. TECHNIQUE: Axial images were obtained at 5 mm thick sections. Reconstructed images are reviewed on [employer] computer in the coronal plane. FINDINGS: Portion of the thyroid visualized is normal. Nodule in the posterior medial left lung base currently measures 1.2 x 1.1 cm. This is increased in s ize from the 0.7 x 0.9 cm. Recommend PET/CT for additional evaluation. No additional masses or nodules are identified. No enlarged mediastinal or hilar adenopathy is evident. A small pretracheal lymph node is present l ess than 1 cm in size. This was present previously. The ascending aorta diameter at the level of the main pulmonary artery is 3.7 cm. The main pulmonary artery diameter at the bifurcation is 2.[address] sections are obtained through the upper abdomen. Abdomen is essentially unremarkable. IMPRESSIONS: 1. Enlarging nodule posterior medial left lung base. PET/CT is recommended for additional evaluation.
== END | disposition home or self-care (01) ==
LOC: RADCTMAIN 07:42
PROVIDERS: ATTEND Internal Medicine
DX: R91.1 Solitary pulmonary nodule (principal); Z88.5 Allergy status to narcotic agent
CPT/HCPCS: 71260; Q9967

== ENCOUNTER → 2020-03-02 | Outpatient (CLI) | payer MEDICARE ==
--- NOTE | 2020-03-04 20:53 | PE ---
EXAMINATION TYPE: PET CT fusion skull to thigh DATE OF EXAM: 03/02/2020 COMPARISON: Chest CT February 21, 2010 and older studies back through March 20, 2019 HISTORY: Enlarging pulmonary nodule. TECHNIQUE: Following the intravenous administration of 10.34 mCi of F-18 FDG, whole body images are performed from the skull base to the midthigh. Images are reviewed on the computer in the coronal, a xial, and sagittal planes. Reconstructed rotating images are created on independent workstation and reviewed on the computer. A localization and attenuation correction CT is performed in conjunction with the PET scan. SCAN: Initial Scan FINDINGS: SKULL BASE AND NECK: No areas of suspicious hypermetabolic uptake. CHEST, MEDIASTINUM, AND HILAR REGION: Respiratory motion artifact degradation at lung bases with medi al left basilar linear scarring having 10 x 9 mm nodular component maximal 2013 not significantly angelita nged from CT back to March 20, 2019 and is ametabolic. No areas of abnormal hypermetabolic uptake throu ghout the thorax identified. ABDOMEN AND PELVIS: Normal excretion is present. No areas of abnormal hypermetabolic uptake. OSSEOUS STRUCTURES: No areas of abnormal hypermetabolic uptake. OTHER CT: Small sized thyroid with subcentimeter right sided nodule axial image 61. Suspect atrial septal closure device placement 107. Cholecystectomy clips are present. Linear scarrin g over the lower anterior abdominal wall. Uterus is surgically absent. Scattered pelvic phleboliths. Postsurgical change to the mid to lower lumbar spine with laminectomy defects and spinous process res ection. Grade 1 anterolisthesis L5 on S1. Mild calcified plaque of the aorta. IMPRESSION: No suspicious hypermetabolic uptake to suggest malignancy. Accounting for technical diffe rences stable nodule or nodular consolidation left lung base along site of linear scarring medially p resumed postinflammatory.
== END | disposition home or self-care (01) ==
LOC: RADPETMAIN 14:58
PROVIDERS: ATTEND Internal Medicine
DX: R91.1 Solitary pulmonary nodule (principal)
CPT/HCPCS: 78815; A9552

== ENCOUNTER → 2020-08-01 | Outpatient (CLI) | payer MEDICARE ==
--- NOTE | 2020-08-01 12:54 | CT ---
EXAMINATION TYPE: CT chest w con DATE OF EXAM: 08/01/2020 COMPARISON: 02/22/2020 CT chest, PET/CT 03/02/2020. HISTORY: lung nodule follow up CT DLP: 446.5 mGycm, Automated exposure control for dose reduction was used. CONTRAST: Performed injected with 100 mL of Isovue 300. TECHNIQUE: Axial images were obtained at 5 mm thick sections. Reconstructed images are reviewed on [employer] computer in the coronal plane. FINDINGS: Portion of the thyroid visualized is normal. There is a 1.1 x 1.0 cm posterior medial left lung base nodule. This was present previously and stabl e in size. Some streak opacity extends towards the midline present previously. Remainder the lung fie lds appear clear. No enlarged mediastinal or hilar adenopathy is evident. The ascending aorta diameter at the level o f the main pulmonary artery is 3.8 cm. The main pulmonary artery diameter at the bifurcation is 2.[address] sections are obtained through the upper abdomen. Abdomen is essentially unremarkable. IMPRESSIONS: 1. Stable left lung base nodule.
== END | disposition home or self-care (01) ==
LOC: RADCTMAIN 11:45
PROVIDERS: ATTEND Internal Medicine
DX: R91.1 Solitary pulmonary nodule (principal); Z88.5 Allergy status to narcotic agent
CPT/HCPCS: 71260; Q9967

== ENCOUNTER → 2020-09-26 | Outpatient (CLI) | payer MEDICARE ==
--- NOTE | 2020-09-27 11:15 | MM ---
Reason for exam: screening (asymptomatic). Last mammogram was performed 2 years and 8 months ago. History: Patient is postmenopausal. Family history of breast cancer in mother and breast cancer in sister. Took estrogen beginning at age 22. Took progesterone beginning at age 22. Physical Findings: A clinical breast exam by your physician is recommended on an annual basis and results should be correlated with mammographic findings. MG 3D Screening Mammo W/Cad Bilateral CC and MLO view(s) were taken. Prior study comparison: January 28, 2018, bilateral MG 3d screening mammo w/cad. October 16, 2015, mammogram, performed at [facility]. There are scattered fibroglandular densities. There are benign appearing round calcifications bilaterally. There is no discrete abnormality. ASSESSMENT: Benign, BI-RAD 2 RECOMMENDATION: Routine screening mammogram of both breasts in 1 year.
== END | disposition home or self-care (01) ==
LOC: RADMAMWWP 08:54
PROVIDERS: ATTEND Family Medicine
DX: Z12.31 Encounter for screening mammogram for malignant neoplasm of breast (principal)
CPT/HCPCS: 77063; 77067

== ENCOUNTER → 2021-02-04 | Outpatient (CLI) | payer MEDICARE ==
--- NOTE | 2021-02-04 10:19 | CT ---
EXAMINATION TYPE: CT chest w con DATE OF EXAM: 02/04/2021 COMPARISON: Chest CT August 01 PET/CT March 02, 2020, 2019 and older CTs. HISTORY: Lung nodule follow up CT DLP: 473.60 mGycm. Automated Exposure Control for Dose Reduction was Utilized. TECHNIQUE: CT scan of the thorax is performed following with IV Contrast, patient injected with 100 ml mL of Isovue 300. FINDINGS: LUNGS: Mild linear scarring left lung base redemonstrated with stable 12 x 9 mm nodular component max imum 46 noted ametabolic on PET CT not significantly changed accounting for technical differences fro m most recent prior CTs. No new greater than 5 mm pulmonary nodules or masses. No pleural effusion or pneumothorax seen bilaterally. MEDIASTINUM: There are no greater than 1 cm hilar or mediastinal lymph nodes. No cardiomegaly or pe ricardial effusion is seen. Mild coronary artery calcification redemonstrated. OTHER: Cholecystectomy clips. Surgical change in the lumbosacral spine noted on the localizer. Mild-t o-moderate multilevel spurring in the thoracic spine again seen. IMPRESSION: Stable left basilar ametabolic 12 mm nodule presumed benign. No new or enlarging nodules noted.
== END | disposition home or self-care (01) ==
LOC: RADCTMAIN 08:39
PROVIDERS: ATTEND Internal Medicine
DX: R91.1 Solitary pulmonary nodule (principal)
CPT/HCPCS: 71260; Q9967

== ENCOUNTER → 2021-05-13 | Outpatient (CLI) | payer MEDICARE ==
--- NOTE | 2021-05-14 07:43 | CT ---
EXAMINATION TYPE: CT chest w con DATE OF EXAM: 05/13/2021 COMPARISON: 02/04/2021, CT angiogram chest 03/20/2019 HISTORY: f/u nodules CT DLP: 440.5 mGycm Automated exposure control for dose reduction was used. CONTRAST: CT scan of the chest is performed with IV Contrast, patient injected with 100 mL of Isovue 300. FINDINGS: LUNGS: Persistent left lower lobe pulmonary nodule measuring 11 x 10 mm versus 12 x 9 mm previously. Nodule is stable relative to 02/04/2021 and 03/20/2019. A metabolic on prior PET/CT. Suggestion of small central calcification. No additional nodules seen. No focal consolidation or volume loss. There is n o pleural effusion or pneumothorax seen. The tracheobronchial tree is patent. MEDIASTINUM: There are no greater than 1 cm hilar or mediastinal lymph nodes. No pericardial effusi on is seen. Thoracic aorta is of normal caliber. The heart is not enlarged. UPPER ABDOMEN: No significant abnormality appreciated. OTHER: No additional significant abnormality is seen. IMPRESSION: 1. Presumed benign nodule left lower lobe unchanged since 03/20/2019. No new nodules identified.
== END | disposition home or self-care (01) ==
LOC: RADCTMAIN 18:48
PROVIDERS: ATTEND Internal Medicine
DX: R91.8 Other nonspecific abnormal finding of lung field (principal)
CPT/HCPCS: 71260; Q9967

== ENCOUNTER → 2022-09-19 | Outpatient (CLI) | payer MEDICARE ==
[2022-09-19 17:45] LABS: Basophils % (A) 1 %; Eosinophils # (A) 0.1 k/uL (0-0.7); Eosinophils % (A) 2 %; HCT 43.9 % (34.0-46.0); HGB 14.4 gm/dL (11.4-16.0); Lymphocytes # (A) 1.3 k/uL (1.0-4.8); Lymphocytes % (A) 22 %; MCH 27.8 pg (25.0-35.0); MCHC 32.9 g/dL (31.0-37.0); MCV 84.3 fL (80.0-100.0); Mean Platelet Volume 8.4; Monocytes # (A) 0.4 k/uL (0-1.0); Monocytes % (A) 7 %; Neutrophils # (A) 3.9 k/uL (1.3-7.7); Neutrophils % (A) 67 %; Platelet Count 255 k/uL (150-450); RDW 13.9 % (11.5-15.5); WBC 5.8 k/uL (3.8-10.6)
[2022-09-19 17:55] LABS: ALT 14 U/L (4-34); AST 31 U/L (14-36); African American GFR (CKD) 85 (>60 ml/min/1.73 sqM); Alkaline Phosphatase 115 U/L (38-126); Anion Gap 8 mmol/L; Blood Urea Nitrogen 14 mg/dL (7-17); C Reactive Protein <0.5 mg/dL (<1.0); Calcium 8.9 mg/dL (8.4-10.2); Carbon Dioxide 26 mmol/L (22-30); Chloride 104 mmol/L (98-107); Glucose 92 mg/dL (74-99); Non-African American GFR(CKD) 74 (>60 ml/min/1.73 sqM); Potassium 4.3 mmol/L (3.5-5.1); Sodium 138 mmol/L (137-145); Total Bilirubin 0.4 mg/dL (0.2-1.3); Total Protein 6.9 g/dL (6.3-8.2)
[2022-09-19 18:10] LABS: T4, Free (Free Thyroxine) 1.45 ng/dL (0.78-2.19)
[2022-09-19 19:31] LABS: Creatine Kinase MB 1.7 ng/mL (0.0-2.4)
[2022-09-19 19:33] LABS: Troponin I <0.012 ng/mL (0.000-0.034)
[2022-09-19 19:56] LABS: Erythrocyte Sedimentation Rate 14 mm/hr (0-20)
== END | disposition home or self-care (01) ==
LOC: LAB 16:46
PROVIDERS: ATTEND Family Medicine
DX: Z12.31 Encounter for screening mammogram for malignant neoplasm of breast (principal); Z13.1 Encounter for screening for diabetes mellitus; E03.9 Hypothyroidism, unspecified; R07.89 Other chest pain
CPT/HCPCS: 80053; 82553; 83036; 83880; 84439; 84443; 84484; 85025; 85379; 85652; 86140

== ENCOUNTER 2023-02-17 08:29 | Day surgery (SDC) | payer MEDICARE ==
[2023-02-13 15:44] VITALS: BMI 29.8
[2023-02-17] MEDS ORDERED: LACTATED RINGERS 1,000 ML IV ONE (09:24)
[2023-02-17 09:27] VITALS: TEMP 97.4
[2023-02-17] MEDS ORDERED: ONDANSETRON 4 MG/2 ML VIAL ONE (09:29)
[2023-02-17] MEDS ORDERED: ONDANSETRON 4 MG/2 ML VIAL IVP ONE (09:33)
[2023-02-17] MEDS ORDERED: PROPOFOL 10 MG/ML 20 ML VIAL IV ONE (10:11)
--- NOTE | 2023-02-17 10:27 | P.PCN ---
Date of Procedure: 02/17/23 Procedure(s) Performed: BRIEF HISTORY: Patient is a 62-year-old pleasant white female scheduled for an elective colonoscopy as a part of screening for colon cancer. PROCEDURE PERFORMED: Colonoscopy. PREOPERATIVE DIAGNOSIS: Screening for colon cancer. IV sedation per Anesthesia. PROCEDURE: After informed consent was obtained, the patient, was brought into the endoscopy unit. IV sedation was administered by Anesthesia under continuous monitoring. Digital rectal examination was normal. Initially the Olympus CF-160 flexible video colonoscope was then inserted in the rectum, gradually advanced into the cecum without any difficulty. Careful examination was performed as the scope was gradually being withdrawn. Ileocecal valve and the appendiceal orifice were visualized and appeared normal. Prep was fair.. Mucosa of the cecum, ascending colon, transverse colon, descending colon, sigmoid colon, and rectum appeared normal. Scattered sigmoid diverticulosis Retroflexion was performed in the rectum and no lesions were seen. The patient tolerated the procedure well. IMPRESSION: Normal-appearing colon from rectum to cecum with no evidence of colorectal neoplasia. Scattered sigmoid diverticula RECOMMENDATIONS: Findings of this examination were discussed with the patient as well his family.. She was advised to continue with MiraLAX 17. Admitted repeat colonoscopy in 10 years
[2023-02-17 10:37] VITALS: PULSE 63
[2023-02-17 10:56] VITALS: BP 125/81; RESP 18
== END 2023-02-17 11:30 | disposition home or self-care (01) ==
LOC: ORWHC2ENDO 08:29
PROVIDERS: ATTEND Internal Medicine Gastroenterology
DX: Z12.11 Encounter for screening for malignant neoplasm of colon (principal); K57.30 Diverticulosis of large intestine without perforation or abscess without bleeding; I10 Essential (primary) hypertension; J45.909 Unspecified asthma, uncomplicated; E07.9 Disorder of thyroid, unspecified; M19.90 Unspecified osteoarthritis, unspecified site; M79.7 Fibromyalgia; Z79.899 Other long term (current) drug therapy; Z88.5 Allergy status to narcotic agent
CPT/HCPCS: J2405; J2704; G0121

== ENCOUNTER 2023-07-24 08:22 | Emergency (ER) | payer MEDICARE ==
[2023-07-24] MEDS ORDERED: SODIUM CHLORIDE 0.9% 1,000 ML IV ONE (08:39)
--- NOTE | 2023-07-24 08:42 | ED ---
General Adult HPI - General Chief complaint: Dizziness Stated complaint: Weakness,Syncope Time Seen by Provider: 07/24/23 08:30 Source: patient, RN notes reviewed, old records reviewed Mode of arrival: EMS Limitations: no limitations - History of Present Illness Initial comments: This is a 63-year-old female presents emergency Department complaining that she was feeling very dizzy this morning and weak. Patient states she does have MS and she was recently diagnosed on Thursday with cold. Patient states her fevers been 102 the last 2 days but she hasn't taken it yet today. Patient denies any difficulty breathing or chest pain. Patient denies any headache now but did have a headache earlier should she took Motrin at 4 AM. Patient denies any ab dominal pain patient denies nausea vomiting diarrhea. Patient states she has not been eating or drinking well lately because she hasn't felt well. Patient states she's had a little bit of an upper respiratory symptoms for the last 2 weeks but her son tested positive for COVID on Thursday so she tested on Thursday. - Related Data Home Medications Medication Instructions Recorded Confirmed Omeprazole [PriLOSEC] 20 mg PO BID 10/17/14 02/17/23 Cyclobenzaprine [Flexeril] 10 mg PO HS PRN 12/29/16 02/17/23 lisinopriL [Prinivil] 10 mg PO HS 12/29/16 02/17/23 Levothyroxine Sodium [Synthroid] 100 mcg PO QAM 02/16/17 02/17/23 Cyclobenzaprine [Flexeril] 5 mg PO BID PRN 03/20/19 02/17/23 Gabapentin [Neurontin] 100 mg PO BID 03/20/19 02/17/23 Aspirin [Adult Low Dose Aspirin EC] 81 mg PO DAILY 08/26/19 02/17/23 Cholecalciferol [Vitamin D3 (25 1,000 unit PO DAILY 08/26/19 02/17/23 Mcg = 1000 Iu)] Metoprolol Tartrate [Lopressor] 25 mg PO W/SUPPER 08/26/19 02/17/23 Metoprolol Tartrate [Lopressor] 50 mg PO W/BRKFST 08/26/19 02/17/23 Atorvastatin [Lipitor] 20 mg PO Q48H 02/13/23 02/17/23 Stool Softener 1 tab PO HS 02/13/23 02/17/23 Previous Rx's Medication Instructions Recorded Albuterol Inhaler [Ventolin Hfa 1 - 2 puff INHALATION Q6HR PRN #1 03/21/19 Inhaler] inhaler Allergies Allergy/AdvReac Type Severity Reaction Status Date / Time coconut Allergy Anaphylaxis Verified 07/24/23 11:13 codeine AdvReac Nausea & Verified 07/24/23 11:13 Vomiting Review of Systems ROS Statement: Those systems with pertinent positive or pertinent negative responses have been documented in the HPI. ROS Other: All systems not noted in ROS Statement are negative. Past Medical History Past Medical History: Asthma, CVA/TIA, Fibromyalgia, GERD/Reflux, Hypertension, Osteoarthritis (OA), Pneumonia, Thyroid Disorder Additional Past Medical History / Comment(s): Multiple sclerosis, allergy induced asthma, hiatal hernia, Patton's esophagus, hx TIA, difficulty swallowing at times. History of Any Multi-Drug Resistant Organisms: None Reported Past Surgical History: Appendectomy, Back Surgery, Cholecystectomy, Hysterectomy, Joint Replacement, Tonsillectomy Additional Past Surgical History / Comment(s): Spinal fusion, left knee replacement, PFO closure(heart). Past Anesthesia/Blood Transfusion Reactions: Postoperative Nausea & Vomiting ( PONV) Additional Past Anesthesia/Blood Transfusion Reaction / Comment(s): "Cannot lay completely flat, gets too dizzy". Past Psychological History: No Psychological Hx Reported Smoking Status: Never smoker Past Alcohol Use History: None Reported Past Drug Use History: None Reported - Past Family History Mother Family Medical History: Cancer Additional Family Medical History / Comment(s): Breast cancer. General Exam - General Exam Comments Initial Comments: GENERAL: Patient is well-developed and well-nourished. Patient is nontoxic and well- hydrated and is in mild distress. ENT: Neck is soft and supple. No significant lymphadenopathy is noted. Oropharynx is clear. Moist mucous membranes. Neck has full range of motion without eliciting any pain. EYES: The sclera were anicteric and conjunctiva were pink and moist. Extraocular movements were intact and pupils were equal round and reactive to light. Eyelids were unremarkable. PULMONARY: Unlabored respirations. Good breath sounds bilaterally. No audible rales rhonchi or wheezing was noted. CARDIOVASCULAR: There is a regular rate and rhythm without any murmurs gallops or rubs. ABDOMEN: Soft and nontender with normal bowel sounds. SKIN: Skin is clear with no lesions or rashes and otherwise unremarkable. NEUROLOGIC: Patient is alert and oriented x3. Cranial nerves II through XII are grossly intact. Motor and sensory are also intact. Normal speech, volume and content. Symmetrical smile. MUSCULOSKELETAL: Normal extremities with adequate strength and full range of motion. LYMPHATICS: No significant lymphadenopathy is noted PSYCHIATRIC: Normal psychiatric evaluation. Limitations: no limitations Course Vital Signs 07/24/23 07/24/23 08:29 10:04 Temperature 98.0 F Pulse Rate 91 88 Respiratory 18 18 Rate Blood Pressure 103/68 135/86 O2 Sat by Pulse 95 95 Oximetry Medical Decision Making - Medical Decision Making EKG was interpreted by myself. EKG shows a sinus rhythm at 97 bpm OK interval 144 tresses 97-273 QTC is 427. Patient's EKG shows no ST segment elevation or depression Was pt. sent in by a medical professional or institution (, DAVID, W[employer] SALARY SPECIALIST, urgent ca re, hospital, or residential...) When possible be specific @ -No Did you speak to anyone other than the patient for history (EMS, parent, family, police, friend...)? What history was obtained from this source @ -No Did you review nursing and triage notes (agree or disagree)? Why? @ -I reviewed and agree with nursing and triage notes Were old charts reviewed (outside hosp., previous admission, EMS record, old EKG, old radiological studies, urgent care reports/EKG's, residential records)? Report findings @ -No old charts were reviewed Differential Diagnosis (chest pain, altered mental status, abdominal pain women, abdominal pain men, vaginal bleeding, weakness, fever, dyspnea, syncope, headache, dizziness, GI bleed, back pain, seizure, CVA, palpatations, mental health, musculoskeletal)? @ -Differential Weakness: Hypoglycemia, shock, sepsis, hyponatremia, anemia, infection, NC, ETOH, adverse medicine reaction, overdose, stroke, this is not meant to be an all-inclusive list. EKG interpreted by me (3pts min.). @ -As above X-rays interpreted by me (1pt min.). @ -Show shows no acute abnormality CT interpreted by me (1pt min.). @ -None done U/S interpreted by me (1pt. min.). @ -None done What testing was considered but not performed or refused? (CT, X-rays, U/S, labs)? Why? @ -None What meds were considered but not given or refused? Why? @ -None Did you discuss the management of the patient with other professionals (professionals i.e. , PA, [employer] AND SALARY SPECIALIST, lab, RT, psych nurse, family welfare social work professor, evaporator operator, teacher, corporate security officer, case management associate)? Give summary @ -No Was smoking cessation discussed for >3mins.? @ -No Was critical care preformed (if so, how long)? @ -No Were there social determinants of health that impacted care today? How? (Homelessness, low income, unemployed, alcoholism, drug addiction, transportation, low edu. Level, literacy, decrease access to med. care, longterm, rehab)? @ -No Was there de-escalation of care discussed even if they declined (Discuss DNR or withdrawal of care, Hospice)? DNR status @ -No What co-morbidities impacted this encounter? (DM, HTN, Smoking, COPD, CAD, Cancer, CVA, ARF, Chemo, Hep., AIDS, mental health diagnosis, sleep apnea, morbi d obesity)? @ -None Was patient admitted / discharged? Hospital course, mention meds given and route, prescriptions, significant lab abnormalities, going to OR and other pertinent info. @ -Went back in the room on 2 different occasions checking the patient and each time she was feeling better she was able to open and that she was drinking and eating some crackers. Patient felt good enough to go home. Undiagnosed new problem with uncertain prognosis? @ -No Drug Therapy requiring intensive monitoring for toxicity (Heparin, Nitro, Insulin, Cardizem)? @ -No Were any procedures done? @ -No Diagnosis/symptom? @ -COVID Acute, or Chronic, or Acute on Chronic? @ -Acute Uncomplicated (without systemic symptoms) or Complicated (systemic symptoms)? @ -complicated Side effects of treatment? @ -No Exacerbation, Progression, or Severe Exacerbation? @ -No Poses a threat to life or bodily function? How? (Chest pain, USA, NC, pneumonia, PE, COPD, DKA, ARF, appy, cholecystitis, CVA, Diverticulitis, Homicidal, Suicidal, threat to staff... and all critical care pts) @ -No - Lab Data Result diagrams: 11/10/23 08:47 07/24/23 08:47 Lab Results 07/24/23 07/24/23 Range/Units 08:47 08:47 WBC 3.5 L (3.8-10.6) k/uL RBC 5.23 (3.80-5.40) m/uL Hgb 14.5 (11.4-16.0) gm/dL Hct 43.7 (34.0-46.0) % MCV 83.6 (80.0-100.0) fL MCH 27.7 (25.0-35.0) pg MCHC 33.1 (31.0-37.0) g/dL RDW 14.0 (11.5-15.5) % Plt Count 143 L (150-450) k/uL MPV 8.0 Neutrophils % 86 % Lymphocytes % 8 % Monocytes % 4 % Eosinophils % 1 % Basophils % 0 % Neutrophils # 3.0 (1.3-7.7) k/uL Lymphocytes # 0.3 L (1.0-4.8) k/uL Monocytes # 0.2 (0-1.0) k/uL Eosinophils # 0.0 (0-0.7) k/uL Basophils # 0.0 (0-0.2) k/uL Sodium 132 L (137-145) mmol/L Potassium 3.5 (3.5-5.1) mmol/L Chloride 99 (98-107) mmol/L Carbon Dioxide 21 L (22-30) mmol/L Anion Gap 12 mmol/L BUN 12 (7-17) mg/dL Creatinine 0.72 (0.52-1.04) mg/dL Est GFR (CKD-EPI)AfAm >90 (>60 ml/min/1.73 sqM) Est GFR (CKD-EPI)NonAf 89 (>60 ml/min/1.73 sqM) Glucose 149 H (74-99) mg/dL Calcium 8.4 (8.4-10.2) mg/dL Magnesium 2.1 (1.6-2.3) mg/dL Total Bilirubin 0.5 (0.2-1.3) mg/dL AST 51 H (14-36) U/L ALT 23 (4-34) U/L Alkaline Phosphatase 95 (38-126) U/L Total Protein 6.5 (6.3-8.2) g/dL Albumin 3.6 (3.5-5.0) g/dL Disposition Clinical Impression: COVID-19 Disposition: HOME SELF-CARE Condition: Good Instructions (If sedation given, give patient instructions): COVID-19 (Coronavirus Disease 2019) (ED) Is patient prescribed a controlled substance at d/c from ED?: No Referrals: Thomas Donahue MD [Primary Care Provider] - 1-2 days Time of Disposition: 11:17
[2023-07-24 08:49] VITALS: RESP 18
[2023-07-24 08:56] LABS: Basophils % (A) 0 %; Eosinophils % (A) 1 %; HCT 43.7 % (34.0-46.0); HGB 14.5 gm/dL (11.4-16.0); Lymphocytes # (A) 0.3 k/uL (1.0-4.8); Lymphocytes % (A) 8 %; MCH 27.7 pg (25.0-35.0); MCHC 33.1 g/dL (31.0-37.0); MCV 83.6 fL (80.0-100.0); Monocytes # (A) 0.2 k/uL (0-1.0); Monocytes % (A) 4 %; Neutrophils % (A) 86 %; Platelet Count 143 k/uL (150-450); RBC 5.23 m/uL (3.80-5.40); WBC 3.5 k/uL (3.8-10.6)
[2023-07-24 09:07] LABS: ALT 23 U/L (4-34); AST 51 U/L (14-36); African American GFR (CKD) >90 (>60 ml/min/1.73 sqM); Albumin 3.6 g/dL (3.5-5.0); Alkaline Phosphatase 95 U/L (38-126); Anion Gap 12 mmol/L; Blood Urea Nitrogen 12 mg/dL (7-17); Calcium 8.4 mg/dL (8.4-10.2); Carbon Dioxide 21 mmol/L (22-30); Chloride 99 mmol/L (98-107); Glucose 149 mg/dL (74-99); Magnesium 2.1 mg/dL (1.6-2.3); Non-African American GFR(CKD) 89 (>60 ml/min/1.73 sqM); Potassium 3.5 mmol/L (3.5-5.1); Sodium 132 mmol/L (137-145); Total Bilirubin 0.5 mg/dL (0.2-1.3); Total Protein 6.5 g/dL (6.3-8.2)
[2023-07-24] MEDS ORDERED: ACETAMINOPHEN TAB 500 MG TAB PO STA (09:25)
--- NOTE | 2023-07-24 09:41 | XR ---
EXAMINATION TYPE: XR chest 2V DATE OF EXAM: 07/24/2023 COMPARISON: 08/31/2019, 12/04/2020 HISTORY: 63-year-old female shortness of breath, difficulty breathing, COVID TECHNIQUE: AP and lateral views FINDINGS: Heart normal size. Aorta and pulmonary vasculature within normal limits. Hazy lower lung density on t he left likely due to overlying soft tissue. No vera consolidation or pleural effusion otherwise see n. PFO closure device. IMPRESSION: Some limitation due to patient body habitus. No definite acute process.
[2023-07-24 11:41] VITALS: BP 120/64; PULSE 85; TEMP 99
== END 2023-07-24 11:42 | disposition home or self-care (01) ==
LOC: EC 08:22
DX: U07.1 COVID-19 (principal); I10 Essential (primary) hypertension; J45.909 Unspecified asthma, uncomplicated; K21.9 Gastro-esophageal reflux disease without esophagitis; E07.9 Disorder of thyroid, unspecified; Z79.890 Hormone replacement therapy; Z79.899 Other long term (current) drug therapy; Z86.73 Personal history of transient ischemic attack (TIA), and cerebral infarction without residual deficits; Z88.5 Allergy status to narcotic agent; Z91.018 Allergy to other foods; Z90.49 Acquired absence of other specified parts of digestive tract
CPT/HCPCS: 36415; 71046; 80053; 83735; 85025; 93005; 96360; 99285

== ENCOUNTER → 2023-08-11 | Outpatient (CLI) | payer MEDICARE ==
--- NOTE | 2023-08-12 09:38 | MM ---
Reason for Exam: Screening (asymptomatic). Last mammogram was performed 2 year(s) and 10 month(s) ago. Patient History: Menarche at age 10. First Full-Term at age 18. Left ovary removed at age 22. Right ovary removed at age 22. Hysterectomy at age 22. Postmenopausal. Estrogen, from age 22 until age 48. Progesterone, from age 22 until age 48. Sister had breast cancer. Mother had breast cancer. Risk Values: Niki 5 year model risk: 6.7%. NCI Lifetime model risk: 23.2%. Prior Study Comparison: 10/16/2015 Screening Mammogram, [facility]. 01/28/2018 Bilateral Screening Mammogram, [facility]. 09/26/2020 Bilateral Screening Mammogram, [facility]. Tissue Density: The breast tissue is almost entirely fat. Findings: Analyzed By CAD. There is no suspicious group of microcalcifications or new suspicious mass. Benign-appearing calcifications bilaterally. Overall Assessment: Benign, BI-RAD 2 Management: Screening Mammogram of both breasts in [address] [facility] will attempt to contact patient to return for supplemental views and ultrasound if indicated. Patient should continue monthly self-breast exams. A clinical breast exam by your physician is recommended on an annual basis. This exam should not preclude additional follow-up of suspicious palpable abnormalities. Note on Niki scores and lifetime risk: 1. A Niki score greater than 3% is considered moderate risk. If this is the case, consider specialist referral to assess eligibility for a risk reducing agent. 2. If overall lifetime risk for the development of breast cancer is 20% or higher, the patient may qualify for future screening with alternating mammogram and breast MRI. Electronically signed and approved by: Bill Dempsey DO
== END | disposition home or self-care (01) ==
LOC: RADMAMWWP 07:56
PROVIDERS: ATTEND Family Medicine
DX: Z12.31 Encounter for screening mammogram for malignant neoplasm of breast (principal); Z78.0 Asymptomatic menopausal state; Z80.3 Family history of malignant neoplasm of breast
CPT/HCPCS: 77063; 77067

== ENCOUNTER 2023-12-30 09:53 | Observation (INO) | payer MEDICARE ==
[2023-12-30 10:38] LABS: Basophils % (A) 1 %; Eosinophils # (A) 0.1 k/uL (0-0.7); Eosinophils % (A) 2 %; HCT 45.2 % (34.0-46.0); HGB 14.7 gm/dL (11.4-16.0); Lymphocytes # (A) 1.1 k/uL (1.0-4.8); Lymphocytes % (A) 19 %; MCH 27.3 pg (25.0-35.0); MCHC 32.5 g/dL (31.0-37.0); MCV 83.8 fL (80.0-100.0); Mean Platelet Volume 8.1; Monocytes # (A) 0.4 k/uL (0-1.0); Monocytes % (A) 7 %; Neutrophils % (A) 69 %; Platelet Count 278 k/uL (150-450); RBC 5.39 m/uL (3.80-5.40); RDW 14.3 % (11.5-15.5); WBC 5.9 k/uL (3.8-10.6)
[2023-12-30] MEDS: ASPIRIN 81 MG PO STA (10:41)
[2023-12-30] MEDS: SODIUM CHLORIDE 0.9% 1,000 ML IV STA (10:43)
[2023-12-30 10:51] LABS: ALT 18 U/L (4-34); AST 35 U/L (14-36); African American GFR (CKD) >90 (>60 ml/min/1.73 sqM); Albumin 4.1 g/dL (3.5-5.0); Alkaline Phosphatase 109 U/L (38-126); Anion Gap 10 mmol/L; Blood Urea Nitrogen 15 mg/dL (7-17); Carbon Dioxide 20 mmol/L (22-30); Chloride 105 mmol/L (98-107); Glucose 132 mg/dL (74-99); Magnesium 2.1 mg/dL (1.6-2.3); Non-African American GFR(CKD) 84 (>60 ml/min/1.73 sqM); Potassium 4.1 mmol/L (3.5-5.1); Sodium 135 mmol/L (137-145); Total Bilirubin 0.6 mg/dL (0.2-1.3)
[2023-12-30 10:54] LABS: INR 0.9 (<1.2); Partial Thromboplastin Time 26.4 sec (22.0-30.0); Prothrombin Time 10.2 sec (10.0-12.5)
--- NOTE | 2023-12-30 10:59 | XR ---
EXAMINATION TYPE: XR chest 2V DATE OF EXAM: 12/30/2023 COMPARISON: 07/24/2023 HISTORY: 63-year-old female dysrhythmia, atrial fibrillation, weakness TECHNIQUE: AP and lateral views FINDINGS: Heart upper limits of normal in size. Aorta and pulmonary vasculature within normal limits. Hazy dens ities relating to overlying soft tissue. No consolidation or pleural effusion seen. There may be unde rlying PFO occluder device. IMPRESSION: Borderline heart size. No definite acute process.
--- NOTE | 2023-12-30 12:19 | CT ---
EXAMINATION TYPE: CT chest angio for PE DATE OF EXAM: 12/30/2023 COMPARISON: 03/20/2019 HISTORY: 63-year-old female evaluate for PE, New onset Afib, elevated dimer, hx HTN TECHNIQUE: Contiguous axial scanning of the chest performed with IV Contrast, patient injected with 1 00 mL of Isovue 370. Coronal and sagittal MIP reconstructions performed. CT DLP: 464.8 mGycm Automated exposure control for dose reduction was used. FINDINGS: The heart is normal size without pericardial effusion. Mild LAD coronary artery calcifications. Aneurysmal aortic root at 4.2 cm versus 4.1 cm, previously. Conventional arch vessel branching anatom y. Satisfactory opacification of the pulmonary arterial system without evidence for pulmonary embolus. Minimal biapical pleural-parenchymal scarring. Mild diffuse bronchial wall thickening may be seen wit h bronchitis or asthma. Some strandy atelectasis or scarring in the lower lungs. Calcified granuloma posterior left base. No consolidation or pleural effusion. No thoracic lymph adenopathy by CT size cr iteria. Visualized upper abdomen shows cholecystectomy clips. There may be a tiny hiatal hernia. Bones: Mild degenerative disc disease mid to lower thoracic spine with slightly accentuated midthorac ic kyphosis. IMPRESSION: 1. NO EVIDENCE FOR PULMONARY EMBOLUS. 2. ANEURYSMAL AORTIC ROOT AT 4.2 CM VERSUS 4.1 CM IN 2019. 3. MILD BRONCHIAL WALL THICKENING MAY REFLECT BRONCHITIS OR ASTHMA.
--- NOTE | 2023-12-30 12:43 | ED ---
General Adult HPI - General Chief complaint: Chest Pain Stated complaint: Chest Pain Time Seen by Provider: 12/30/23 10:24 Source: patient, RN notes reviewed, old records reviewed Mode of arrival: ambulatory Limitations: no limitations - History of Present Illness Initial comments: Patient is a 63-year-old female presents emergency department complaining of chest pain. Had palpitations, chest pressure sensation and lightheadedness. Pain did radiate towards the left arm. Started approximately 1 hour prior to arrival. Presents for further evaluation at this time. Has a history of fibromyalgia, hypertension, asthma. Also history of MS. No cardiac history otherwise. Did have a PFO previously that was closed. Is not on blood thinne rs. Presents for further evaluation at this time.States symptoms have largely resolved within the palpitations at this time. Presents for further evaluation. - Related Data Home Medications Medication Instructions Recorded Confirmed Omeprazole [PriLOSEC] 20 mg PO DAILY@1200 10/17/14 12/30/23 Cyclobenzaprine [Flexeril] 10 mg PO HS PRN 12/29/16 12/30/23 Levothyroxine Sodium [Synthroid] 100 mcg PO DAILY 02/16/17 12/30/23 Gabapentin [Neurontin] 100 mg PO BID 03/20/19 12/30/23 Aspirin [Adult Low Dose Aspirin EC] 81 mg PO DAILY@1200 08/26/19 12/30/23 Metoprolol Tartrate [Lopressor] 25 mg PO W/SUPPER 08/26/19 12/30/23 Metoprolol Tartrate [Lopressor] 50 mg PO W/BRKFST 08/26/19 12/30/23 Atorvastatin [Lipitor] 20 mg PO Q2D@2100 02/13/23 12/30/23 Cholecalciferol [Vitamin D3 (25 37.5 mcg PO DAILY 07/24/23 12/30/23 Mcg = 1000 Iu)] Docusate [Colace] 100 mg PO DAILY 07/24/23 12/30/23 lisinopriL [Zestril] 10 mg PO HS 07/24/23 12/30/23 Multivitamins, Thera [Multivitamin 1 tab PO DAILY 12/30/23 12/30/23 (formulary)] Allergies Allergy/AdvReac Type Severity Reaction Status Date / Time coconut Allergy Anaphylaxis Verified 12/30/23 11:39 codeine AdvReac Nausea & Verified 12/30/23 11:39 Vomiting Review of Systems ROS Statement: Those systems with pertinent positive or pertinent negative responses have been documented in the HPI. Review of Systems: CONST: Denies fever EYES: Denies blurry vision ENT: Denies nasal congestion C/V: Endorses palpitations RESP: Denies shortness of breath GI: Denies abdominal pain : Denies dysuria SKIN: Denies rash. MSK: Denies joint pain. NEURO: Denies headache ROS Other: All systems not noted in ROS Statement are negative. Past Medical History Past Medical History: Asthma, CVA/TIA, Fibromyalgia, GERD/Reflux, Hypertension, Osteoarthritis (OA), Pneumonia, Thyroid Disorder Additional Past Medical History / Comment(s): Multiple sclerosis, allergy induced asthma, hiatal hernia, Patton's esophagus, hx TIA, difficulty swallowing at times. History of Any Multi-Drug Resistant Organisms: None Reported Past Surgical History: Appendectomy, Back Surgery, Cholecystectomy, Hysterectomy, Joint Replacement, Tonsillectomy Additional Past Surgical History / Comment(s): Spinal fusion, left knee replacement, PFO closure(heart). Past Anesthesia/Blood Transfusion Reactions: Postoperative Nausea & Vomiting (PONV) Additional Past Anesthesia/Blood Transfusion Reaction / Comment(s): "Cannot lay completely flat, gets too dizzy". Past Psychological History: No Psychological Hx Reported Smoking Status: Never smoker Past Alcohol Use History: None Reported Past Drug Use History: None Reported - Past Family History Mother Family Medical History: Cancer Additional Family Medical History / Comment(s): Breast cancer. General Exam - General Exam Comments Initial Comments: General: Appears in no acute distress. HEAD: Normal with no signs of head trauma. EYES: PERRLA, EOMI, conjunctiva normal, no discharge. ENT: Hearing grossly intact, normal oropharynx. RESPIRATORY: Clear breath sounds bilaterally. No wheezes, rales, or rhonchi. C/V: Irregular rate and rhythm. S1 and S2 auscultated, no edema, peripheral pul ses 2+ and intact throughout ABD: Abd is soft, nontender, nondistended EXT: Normal range of motion, no obvious deformity SKIN: No rashes or lesions observed on exposed skin. NEURO: Alert and oriented x 4. Limitations: no limitations Course Vital Signs 12/30/23 12/30/23 09:55 13:41 Temperature 97.6 F Pulse Rate 91 89 Respiratory 18 16 Rate Blood Pressure 123/67 108/77 O2 Sat by Pulse 98 100 Oximetry Medical Decision Making - Medical Decision Making Was pt. sent in by a medical professional or institution (, DAVID, INTERNAL CONTROLS SPECIALIST, urgent care, hospital, or senior care...) When possible be specific @ -No Did you speak to anyone other than the patient for history (EMS, parent, family, police, friend...)? What history was obtained from this source @ -No Did you review nursing and triage notes (agree or disagree)? Why? @ -I reviewed and agree with nursing and triage notes Were old charts reviewed (outside hosp., previous admission, EMS record, old EKG, old radiological studies, urgent care reports/EKG's, senior care records)? Report findings @ -Old charts reviewed. Differential Diagnosis (chest pain, altered mental status, abdominal pain women, abdominal pain men, vaginal bleeding, weakness, fever, dyspnea, syncope, h eadache, dizziness, GI bleed, back pain, seizure, CVA, palpatations, mental health, musculoskeletal)? @ -Differential Chest Pain: Stable Angina, Unstable Angina, STEMI, NSTEMI Aortic Dissection, Pneumothorax, Musculoskeletal, Esophageal Spasm GERD, Cholecystitis, Pancreatitis, Zoster, this is not meant to be an all-inclusive list. EKG interpreted by me (3pts min.). @ -As above X-rays interpreted by me (1pt min.). @ -Chest x-ray showed no obvious acute cardiopulmonary process. CT interpreted by me (1pt min.). @ -CT angiogram negative for pulmonary embolism. Does show a relatively stable aneurysmal dilation of the aortic root without complication. U/S interpreted by me (1pt. min.). @ -None done What testing was considered but not performed or refused? (CT, X-rays, U/S, labs)? Why? @ -None What meds were considered but not given or refused? Why? @ -Considered a rate control agent however despite patient being in A-fib with RVR out in triage, patient remained in rate controlled A-fib when she was placed in trauma bay 1. She is already on metoprolol at home. Will continue to monitor at this time. Consider initiating anticoagulation therapy, however after discussion with the admitting team, Dr. Jewell states that he will initiate anticoagulation therapy. He was otherwise in agreement the plan. Therefore I will defer this management to him. Did you discuss the management of the patient with other professionals (professionals i.e. , DAVID, INTERNAL CONTROLS SPECIALIST, lab, RT, psych nurse, manager social work, comic book writer, teacher, fire officer, gym manager)? Give summary @ - I spoke with Dr. Jewell of [facility] who was in agreement with this plan. He informed me that he will initiate the anticoagulation medication for the patient. Therefore I will hold on Eliquis at this time. Admitting team will manage. Cardiology consulted. Was smoking cessation discussed for >3mins.? @ -No Was critical care preformed (if so, how long)? @ -No Were there social determinants of health that impacted care today? How? (Homelessness, low income, unemployed, alcoholism, drug addiction, transportation, low edu. Level, literacy, decrease access to med. care, [facility], rehab)? @ -No Was there de-escalation of care discussed even if they declined (Discuss DNR or withdrawal of care, Hospice)? DNR status @ -No What co-morbidities impacted this encounter? (DM, HTN, Smoking, COPD, CAD, Cancer, CVA, ARF, Chemo, Hep., AIDS, mental health diagnosis, sleep apnea, morbid obesity)? @ -None Was patient admitted / discharged? Hospital course, mention meds given and route, prescriptions, significant lab abnormalities, going to OR and other pertinent info. @ -Based on the patient's presentation and physical exam, patient presented with A-fib with RVR. She was placed in trauma bay 1 upon arrival. She also has chest pain which has since resolved. Patient given an aspirin. Currently patient is rate controlled for her A-fib ranging anywhere from 90 to 110 bpm at bedside. Therefore we will hold off on any additional rate control agent. Will likely initiate a blood thinner at some point however we will wait at this time until workup is complete. Patient was in agreement this plan. Vital signs otherwise within acceptable limits. EKG showed A-fib with RVR in the waiting room but currently is rate controlled. Still in A-fib. Labs are remarkable for an elevated D-dimer of 0.83. Undetectable troponin. Viral swabs negative. Chest x-ray showed no signs of acute ischemia. CT angiogram to evaluate for PE was completed and showed no obvious signs of PE. At this time, I discussed results with patient. She is resting comfortably still rate controlled. I would like to admit her for her chest pain evaluation as well as new onset A-fib. She would likely have oral anticoagulation initiated. Patient was in agreement with this plan. Will continue to monitor heart rate. I spoke with Dr. Jewell of [facility] who was in agreement with this plan. He informed me that he will initiate the anticoagulation medication for the patient. Therefore I will hold on Eliquis at this time. Admitting team will manage. Cardiology consulted. Undiagnosed new problem with uncertain prognosis? @ -No Drug Therapy requiring intensive monitoring for toxicity (Heparin, Nitro, Insulin, Cardizem)? @ -No Were any procedures done? @ -No Diagnosis/symptom? @ -Chest pain, new onset A-fib Acute, or Chronic, or Acute on Chronic? @ -Acute Uncomplicated (without systemic symptoms) or Complicated (systemic symptoms)? @ -Complicated Side effects of treatment? @ -No Exacerbation, Progression, or Severe Exacerbation? @ -No Poses a threat to life or bodily function? How? (Chest pain, [place], MT, pneumonia, PE, COPD, DKA, ARF, appy, cholecystitis, CVA, Diverticulitis, Homicidal, Suicidal, threat to staff... and all critical care pts) @ -Yes - Lab Data Result diagrams: 12/30/23 10:10 12/30/23 10:10 Lab Results 12/30/23 12/30/23 12/30/23 Range/Units 10:10 10:10 10:10 WBC 5.9 (3.8-10.6) k/uL RBC 5.39 (3.80-5.40) m/uL Hgb 14.7 (11.4-16.0) gm/dL Hct 45.2 (34.0-46.0) % MCV 83.8 (80.0-100.0) fL MCH 27.3 (25.0-35.0) pg MCHC 32.5 (31.0-37.0) g/dL RDW 14.3 (11.5-15.5) % Plt Count 278 (150-450) k/uL MPV 8.1 Neutrophils % 69 % Lymphocytes % 19 % Monocytes % 7 % Eosinophils % 2 % Basophils % 1 % Neutrophils # 4.0 (1.3-7.7) k/uL Lymphocytes # 1.1 (1.0-4.8) k/uL Monocytes # 0.4 (0-1.0) k/uL Eosinophils # 0.1 (0-0.7) k/uL Basophils # 0.0 (0-0.2) k/uL PT 10.2 (10.0-12.5) sec INR 0.9 (<1.2) APTT 26.4 (22.0-30.0) sec D-Dimer 0.83 H (<0.60) mg/L FEU Sodium 135 L (137-145) mmol/L Potassium 4.1 (3.5-5.1) mmol/L Chloride 105 (98-107) mmol/L Carbon Dioxide 20 L (22-30) mmol/L Anion Gap 10 mmol/L BUN 15 (7-17) mg/dL Creatinine 0.75 (0.52-1.04) mg/dL Est GFR (CKD-EPI)AfAm >90 (>60 ml/min/1.73 sqM) Est GFR (CKD-EPI)NonAf 84 (>60 ml/min/1.73 sqM) Glucose 132 H (74-99) mg/dL Calcium 9.0 (8.4-10.2) mg/dL Magnesium 2.1 (1.6-2.3) mg/dL Total Bilirubin 0.6 (0.2-1.3) mg/dL AST 35 (14-36) U/L ALT 18 (4-34) U/L Alkaline Phosphatase 109 (38-126) U/L Troponin I (0.000-0.034) ng/mL Total Protein 7.0 (6.3-8.2) g/dL Albumin 4.1 (3.5-5.0) g/dL TSH 3.620 (0.465-4.680) mIU/L Urine Color Urine Appearance (Clear) Urine pH (5.0-8.0) Ur Specific [place] (1.001-1.035) Urine Protein (Negative) Urine Glucose (UA) (Negative) Urine Ketones (Negative) Urine Blood (Negative) Urine Nitrite (Negative) Urine Bilirubin (Negative) Urine Urobilinogen (<2.0) mg/dL Ur Leukocyte Esterase (Negative) Urine RBC (0-5) /hpf Urine WBC (0-5) /hpf Ur Squamous Epith Cells (0-4) /hpf Hyaline Casts (0-2) /lpf Urine Mucus (None) /hpf Influenza Type A (PCR) (Not Detectd) Influenza Type B (PCR) (Not Detectd) RSV (PCR) (Not Detectd) SARS-CoV-2 (PCR) (Not Detectd) 12/30/23 12/30/23 12/30/23 Range/Units 10:10 10:40 11:40 WBC (3.8-10.6) k/uL RBC (3.80-5.40) m/uL Hgb (11.4-16.0) gm/dL Hct (34.0-46.0) % MCV (80.0-100.0) fL MCH (25.0-35.0) pg MCHC (31.0-37.0) g/dL RDW (11.5-15.5) % Plt Count (150-450) k/uL MPV Neutrophils % % Lymphocytes % % Monocytes % % Eosinophils % % Basophils % % Neutrophils # (1.3-7.7) k/uL Lymphocytes # (1.0-4.8) k/uL Monocytes # (0-1.0) k/uL Eosinophils # (0-0.7) k/uL Basophils # (0-0.2) k/uL PT (10.0-12.5) sec INR (<1.2) APTT (22.0-30.0) sec D-Dimer (<0.60) mg/L FEU Sodium (137-145) mmol/L Potassium (3.5-5.1) mmol/L Chloride (98-107) mmol/L Carbon Dioxide (22-30) mmol/L Anion Gap mmol/L BUN (7-17) mg/dL Creatinine (0.52-1.04) mg/dL Est GFR (CKD-EPI)AfAm (>60 ml/min/1.73 sqM) Est GFR (CKD-EPI)NonAf (>60 ml/min/1.73 sqM) Glucose (74-99) mg/dL Calcium (8.4-10.2) mg/dL Magnesium (1.6-2.3) mg/dL Total Bilirubin (0.2-1.3) mg/dL AST (14-36) U/L ALT (4-34) U/L Alkaline Phosphatase (38-126) U/L Troponin I <0.012 (0.000-0.034) ng/mL Total Protein (6.3-8.2) g/dL Albumin (3.5-5.0) g/dL TSH (0.465-4.680) mIU/L Urine Color Light Yellow Urine Appearance Cloudy H (Clear) Urine pH 5.5 (5.0-8.0) Ur Specific Paden 1.015 (1.001-1.035) Urine Protein Negative (Negative) Urine Glucose (UA) Negative (Negative) Urine Ketones Negative (Negative) Urine Blood Negative (Negative) Urine Nitrite Negative (Negative) Urine Bilirubin Negative (Negative) Urine Urobilinogen <2.0 (<2.0) mg/dL Ur Leukocyte Esterase Large H (Negative) Urine RBC 4 (0-5) /hpf Urine WBC 4 (0-5) /hpf Ur Squamous Epith Cells 7 H (0-4) /hpf Hyaline Casts 1 (0-2) /lpf Urine Mucus Rare H (None) /hpf Influenza Type A (PCR) Not Detected (Not Detectd) Influenza Type B (PCR) Not Detected (Not Detectd) RSV (PCR) Not Detected (Not Detectd) SARS-CoV-2 (PCR) Not Detected (Not Detectd) - EKG Data -: EKG Interpreted by Me EKG Comments: 12-lead Electrocardiogram Interpretation Note EKG was reviewed and interpreted by myself. 12-lead ECG performed at 1004 is interpreted by me as revealing atrial fibrillation with RVR at a rate of 131 beats per minute. [place] is normal. QRS duration is 91 ms, QTc is 374 ms.. There were no ST or T wave abnormalities to suggest myocardial ischemia or injury. R wave progression across the precordium was satisfactory. By my interpretation this EKG is non-diagnostic for acute ischemia. Disposition Clinical Impression: Chest pain, New onset a-fib Disposition: ADMITTED IP TO THIS HOSP Condition: Stable Time of Disposition: 12:41
[2023-12-30] MEDS ORDERED: NALOXONE 0.4 MG/ML 1 ML VIAL IV PRN (12:46)
[2023-12-30] MEDS ORDERED: ONDANSETRON 4 MG/2 ML VIAL IVP PRN (12:46)
[2023-12-30 13:36] LABS: Appearance,Urine Cloudy (Clear); Bilirubin,Urine Negative (Negative); Blood,Urine Negative (Negative); Color,Urine Light Yellow; Glucose,Urine (UA) Negative (Negative); Hyaline Casts,Urine 1 /lpf (0-2); Ketones,Urine Negative (Negative); Leukocyte Esterase,Urine Large (Negative); Mucus,Urine Rare /hpf; Nitrite,Urine Negative (Negative); PH, Urine 5.5 (5.0-8.0); Protein,Urine Negative (Negative); RBC,Urine 4 /hpf (0-5); Specific Gravity,Urine 1.015 (1.001-1.035); Squamous Epithelial Cell,Urine 7 /hpf (0-4); Urobilinogen,Urine <2.0 mg/dL (<2.0); WBC,Urine 4 /hpf (0-5)
--- NOTE | 2023-12-30 15:17 | P.HPIM ---
History of Present Illness H&P Date: 12/30/23 63 year old F with PMH of HTN, TIA, h/o PFO closure, multiple sclerosis, hypothyroidism, dyslipidemia presents to the ED. She was enjoying breakfast around 8:30 AM when suddenly started on experience palpitations. During this time she also noted lightheadedness and pressure like chest pain. When symptoms persisted this prompted her to come to the ED. She denies excessive caffeine or alcohol use. She did take a dose of Metoprolol prior to coming. She underwent extensive evaluation in the ED. BP 123, HR 91, T 97.6F, RR 18, 98% on RA. In the ED, she underwent EKG which showed atrial fibrillation with RVR rate of 131. She became rate controlled without any intervention. CBC, Coag panel, CMP was done significant for Na 135, bicarb 20, glucose 132. D-Dimer 0.82. Troponin < 0.012. TSH 3.62. UA large LE. COVID, RSV, Flu negative. CTA chest aortic root dilated to 4.2 cm, no PE, mild bronchial wall thickening. CXR negative. General: non toxic, no distress, appears at stated age Derm: warm, dry Head: atraumatic, normocephalic, symmetric Eyes: EOMI, no lid lag, pale sclera Mouth: no lip lesion, mucus membranes moist Cardiovascular: S1S2 irregular, no murmur Lungs: CTA bilateral, no rhonchi, no rales , no accessory muscle use Ext: no gross muscle atrophy, no edema, no contractures Neuro: no focal neuro deficits Psych: Alert, oriented, appropriate affect Based on my assessment of this patient, this patient meets a high complexity level of care. Patient has an acute diagnosis of A-Fib with RVR that poses a threat to life or bodily function. Atrial fibrillation with RVR: Restart Metoprolol 25 mg PO QHS and 50 mg PO QD. LOS VASC of 5. AC with Eliquis 5 mg PO BID. Telemetry monitoring. Cardiology consult. Elevated D-Dimer: CTA chest ruled out PE. Chest pressure: Trend Trop/EKG to rule out ACS. Hypertension: Metoprolol as above. Lisinopril 20 mg PO HS. Multiple sclerosis: Flexeril 10 mg PO QHS PRN. Gabapentin 100 mg PO TID. Hypothyroidism: Synthroid 100 mcg PO QD. Dyslipidemia: Lipitor 20 mg Q2D. CODE STATUS: FULL CODE. DVT Prophylaxis: Eliquis. GI Prophylaxis: Designated medical POA if patient is not able to make medical decisions for themselves: Alex I have reviewed the following analysis consultant notes: ED note I have reviewed the results of the following tests: As above. I have ordered the following tests: As above. I have discussed the care of this patient with the following independent historian: I have independently interpreted the following test below: EKG. I have discussed the management of this patient with the following physician: ED provider. Past Medical History Past Medical History: Asthma, CVA/TIA, Fibromyalgia, GERD/Reflux, Hypertension, Osteoarthritis (OA), Pneumonia, Thyroid Disorder Additional Past Medical History / Comment(s): Multiple sclerosis, allergy induced asthma, hiatal hernia, Patton's esophagus, hx TIA, difficulty swallowing at times. History of Any Multi-Drug Resistant Organisms: None Reported Past Surgical History: Appendectomy, Back Surgery, Cholecystectomy, Hysterectomy, Joint Replacement, Tonsillectomy Additional Past Surgical History / Comment(s): Spinal fusion, left knee repla cement, PFO closure(heart). Past Anesthesia/Blood Transfusion Reactions: Postoperative Nausea & Vomiting (PONV) Additional Past Anesthesia/Blood Transfusion Reaction / Comment(s): "Cannot lay completely flat, gets too dizzy". Past Psychological History: No Psychological Hx Reported Smoking Status: Never smoker Past Alcohol Use History: None Reported Past Drug Use History: None Reported - Past Family History Mother Family Medical History: Cancer Additional Family Medical History / Comment(s): Breast cancer. Medications and Allergies Home Medications Medication Instructions Recorded Confirmed Type Omeprazole [PriLOSEC] 20 mg PO DAILY@1200 10/17/14 12/30/23 History Cyclobenzaprine [Flexeril] 10 mg PO HS PRN 12/29/16 12/30/23 History Levothyroxine Sodium [Synthroid] 100 mcg PO DAILY 02/16/17 12/30/23 History Gabapentin [Neurontin] 100 mg PO BID 03/20/19 12/30/23 History Aspirin [Adult Low Dose Aspirin EC] 81 mg PO DAILY@1200 08/26/19 12/30/23 History Metoprolol Tartrate [Lopressor] 25 mg PO W/SUPPER 08/26/19 12/30/23 History Metoprolol Tartrate [Lopressor] 50 mg PO W/BRKFST 08/26/19 12/30/23 History Atorvastatin [Lipitor] 20 mg PO Q2D@2100 02/13/23 12/30/23 History Cholecalciferol [Vitamin D3 (25 37.5 mcg PO DAILY 07/24/23 12/30/23 History Mcg = 1000 Iu)] Docusate [Colace] 100 mg PO DAILY 07/24/23 12/30/23 History lisinopriL [Zestril] 10 mg PO HS 07/24/23 12/30/23 History Multivitamins, Thera [Multivitamin 1 tab PO DAILY 12/30/23 12/30/23 History (formulary)] Allergies Allergy/AdvReac Type Severity Reaction Status Date / Time coconut Allergy Anaphylaxis Verified 12/30/23 11:39 codeine AdvReac Nausea & Verified 12/30/23 11:39 Vomiting Physical Exam Vitals: Vital Signs Temp Pulse Resp BP Pulse Ox 12/30/23 13:41 89 16 108/77 100 12/30/23 09:55 97.6 F 91 18 123/67 98 Intake and Output 12/30/23 12/30/23 12/30/23 06:59 14:59 22:59 Other: Weight 83.915 kg Results CBC & Chem 7: 12/30/23 10:10 12/30/23 10:10 Labs: Abnormal Lab Results - Last 24 Hours (Table) 12/30/23 12/30/23 12/30/23 Range/Units 10:10 10:10 11:40 D-Dimer 0.83 H (<0.60) mg/L FEU Sodium 135 L (137-145) mmol/L Carbon Dioxide 20 L (22-30) mmol/L Glucose 132 H (74-99) mg/dL Urine Appearance Cloudy H (Clear) Ur Leukocyte Esterase Large H (Negative) Ur Squamous Epith Cells 7 H (0-4) /hpf Urine Mucus Rare H (None) /hpf
[2023-12-30] MEDS: METOPROLOL TARTRATE 25 MG TAB PO SCH (18:10)
[2023-12-30] MEDS: CYCLOBENZAPRINE 10 MG TAB PO PRN (18:14)
[2023-12-30] MEDS: GABAPENTIN 100 MG CAP PO SCH (21:01)
[2023-12-30] MEDS: APIXABAN 5 MG TAB PO SCH (21:01)
[2023-12-30] MEDS: lisinopriL 10 MG TAB PO SCH (21:01)
[2023-12-31] MEDS: LEVOTHYROXINE 100 MCG TAB PO SCH (06:43)
[2023-12-31] MEDS: METOPROLOL TARTRATE 50 MG TAB PO SCH ×2 (06:46→08:29)
[2023-12-31 11:23] LABS: Basophils # (A) 0.04 X 10*3/uL (0.00-0.10); Eosinophils % (A) 2.6 %; HCT 43.2 % (37.2-46.3); HGB 13.8 g/dL (12.0-15.0); Lymphocytes # (A) 0.97 X 10*3/uL (0.90-5.00); Lymphocytes % (A) 24.9 %; MCH 26.8 pg (27.0-32.0); MCHC 31.9 g/dL (32.0-37.0); MCV 83.9 FL (80.0-97.0); Mean Platelet Volume 10.8 FL (9.5-12.2); Monocytes # (A) 0.43 X 10*3/uL (0.20-1.00); NRBC Per 100 WBC 0 X 10*3/uL (0.00-0.01); Neutrophils # (A) 2.35 X 10*3/uL (1.80-7.70); Neutrophils % (A) 60.2 %; Platelet Count 269 X 10*3/uL (140-440); RBC 5.15 X 10*6/uL (4.10-5.20); RDW 14.5 % (11.5-14.5)
--- NOTE | 2023-12-31 11:23 | P.CRDCN ---
History of Present Illness History of present illness: HISTORY OF PRESENT ILLNESS: This is a 63-year-old female with a past medical history significant for multiple sclerosis, TIA, hypertension, hyperlipidemia, and PFO closure. Patient follows in the office with Dr. Hernandez. We have been asked to see the patient in consultation for new onset a fib. Patient examined at the bedside in the emergency room. Patient presented to the hospital with a chief complaint of palpitations. Patient was found to be in A-fib with RVR. She is since conve rted to sinus mechanism. She denies a history of atrial fibrillation. She currently denies chest pain or pressure. Vital signs are stable. DIAGNOSTICS: - EKG reveals A-fib with RVR. - Chest xray borderline heart size. No definite acute process.. - Laboratory data: WBC 5.9. Hemoglobin 14.7. Platelet count 278. D-dimer 0.83. Sodium 135. Potassium 4.1. BUN 15. Creatinine 0.75. Troponin negative x 3. TSH 3.620. - Current home cardiac medications include aspirin 81 mg daily, metoprolol tartrate 50 mg in the morning and 25 mg in the afternoon, Lipitor 20 mg every 2 days. - Most recent echocardiogram obtained in January 2023 revealed EF 55%, mild TR, PFO device present. - Patient underwent stress testing in October 2021 which was negative for ischemia REVIEW OF SYSTEMS: At the time of my exam: CONSTITUTIONAL: Denies fever or chills. HEENT: Denies blurred vision, vision changes, or eye pain. Denies hemoptysis CARDIOVASCULAR: Denies chest pain. Denies orthopnea. Denies PND. Denies palpitations RESPIRATORY: Denies shortness of breath. GASTROINTESTINAL: Denies abdominal pain. Denies nausea or vomiting. HEMATOLOGIC: Denies bleeding disorders. GENITOURINARY: Denies any blood in urine. SKIN: Denies pruitis. Denies rash. PHYSICAL EXAM: VITAL SIGNS: Reviewed. GENERAL: Well-developed in no acute distress. HEENT: Head is normocephalic. Pupils are equal, round. Sclerae anicteric. Mucous membranes of the mouth are moist. Neck supple. No JVD or thyromegaly LUNGS: Respirations even and unlabored. Lungs essentially clear to auscultation bilaterally. HEART: Regular rate and rhythm. S1 and S2 heard. ABDOMEN: Soft. Nondistended. Nontender. EXTREMITIES: Normal range of motion. No clubbing or cyanosis. Peripheral pulses intact. No lower extremity edema NEUROLOGIC: Awake and alert. Oriented x 3. ASSESSMENT: Palpitations New onset paroxysmal atrial fibrillation with RVR, currently maintaining sinus mechanism History of PFO closure History of multiple sclerosis History of TIA History of hypertension History of hyperlipidemia PLAN: Patient has been initiated on Eliquis 5 mg twice a day Increase metoprolol to 50 mg twice a day Stress test was ordered this morning. However patient was unable to reach her target heart rate as patient received beta radha this morning. She was asymptomatic during her stress test. Will consider repeat stress testing on an outpatient basis. May obtain echocardiogram on an outpatient basis Patient may be discharged home today from a cardiac standpoint and follow-up in the office with Dr. Hernandez Nurse practitioner note has been reviewed by physician. Signing provider agrees with the documented findings, assessment, and plan of care documented by [employer] CHILDH[employer] EDUCATOR AIDE as a scribe. Past Medical History Past Medical History: Asthma, CVA/TIA, Fibromyalgia, GERD/Reflux, Hypertension, Osteoarthritis (OA), Pneumonia, Thyroid Disorder Additional Past Medical History / Comment(s): Multiple sclerosis, allergy induced asthma, hiatal hernia, Patton's esophagus, hx TIA, difficulty s wallowing at times. History of Any Multi-Drug Resistant Organisms: None Reported Past Surgical History: Appendectomy, Back Surgery, Cholecystectomy, H ysterectomy, Joint Replacement, Tonsillectomy Additional Past Surgical History / Comment(s): Spinal fusion, left knee replacement, PFO closure(heart). Past Anesthesia/Blood Transfusion Reactions: Postoperative Nausea & Vomiting (PONV) Additional Past Anesthesia/Blood Transfusion Reaction / Comment(s): "Cannot lay completely flat, gets too dizzy". Past Psychological History: No Psychological Hx Reported Smoking Status: Never smoker Past Alcohol Use History: None Reported Past Drug Use History: None Reported - Past Family History Mother Family Medical History: Cancer Additional Family Medical History / Comment(s): Breast cancer. Medications and Allergies Home Medications Medication Instructions Recorded Confirmed Type Omeprazole [PriLOSEC] 20 mg PO DAILY@1200 10/17/14 12/30/23 History Cyclobenzaprine [Flexeril] 10 mg PO HS PRN 12/29/16 12/30/23 History Levothyroxine Sodium [Synthroid] 100 mcg PO DAILY 02/16/17 12/30/23 History Gabapentin [Neurontin] 100 mg PO BID 03/20/19 12/30/23 History Aspirin [Adult Low Dose Aspirin EC] 81 mg PO DAILY@1200 08/26/19 12/30/23 History Metoprolol Tartrate [Lopressor] 25 mg PO W/SUPPER 08/26/19 12/30/23 History Metoprolol Tartrate [Lopressor] 50 mg PO W/BRKFST 08/26/19 12/30/23 History Atorvastatin [Lipitor] 20 mg PO Q2D@2100 02/13/23 12/30/23 History Cholecalciferol [Vitamin D3 (25 37.5 mcg PO DAILY 07/24/23 12/30/23 History Mcg = 1000 Iu)] Docusate [Colace] 100 mg PO DAILY 07/24/23 12/30/23 History lisinopriL [Zestril] 10 mg PO HS 07/24/23 12/30/23 History Multivitamins, Thera [Multivitamin 1 tab PO DAILY 12/30/23 12/30/23 History (formulary)] Allergies Allergy/AdvReac Type Severity Reaction Status Date / Time coconut Allergy Anaphylaxis Verified 12/30/23 11:39 codeine AdvReac Nausea & Verified 12/30/23 11:39 Vomiting Physical Exam Vitals: Vital Signs Pulse Resp BP Pulse Ox 12/31/23 11:04 74 14 129/85 96 12/31/23 07:28 79 15 113/78 12/31/23 06:02 84 19 113/78 12/31/23 04:08 96 18 128/87 99 12/31/23 01:01 79 16 117/87 98 12/30/23 21:02 89 16 115/86 96 12/30/23 19:26 83 18 104/65 95 12/30/23 18:00 90 16 110/62 96 12/30/23 15:36 91 12 107/84 12/30/23 13:41 89 16 108/77 100 Results 12/30/23 10:10 12/30/23 10:10 Cardiac Enzymes 12/30/23 12/30/23 Range/Units 14:02 17:59 Troponin I 0.023 <0.012 (0.000-0.034) ng/mL Current Medications Generic Name Dose Route Start Last Admin Trade Name Freq PRN Reason Stop Dose Admin Apixaban 5 mg 12/30/23 21:00 12/31/23 08:32 Apixaban 5 Mg Tab PO 5 mg BID SEBASTIÁN Administration Protocol Atorvastatin Calcium 20 mg 12/31/23 21:00 Atorvastatin 20 Mg Tab PO Q2D@2100 [facility] Cyclobenzaprine HCl 10 mg 12/30/23 13:08 12/30/23 18:14 Cyclobenzaprine 10 Mg Tab PO 10 mg HS PRN Administration Muscle Spasm Gabapentin 100 mg 12/30/23 21:00 12/31/23 08:32 Gabapentin 100 Mg Cap PO 100 mg BID SEBASTIÁN Administration Levothyroxine Sodium 100 mcg 12/31/23 06:30 12/31/23 06:43 Levothyroxine 100 Mcg Tab PO 100 mcg DAILY@0630 SEBASTIÁN Administration Lisinopril 10 mg 12/30/23 21:00 12/30/23 21:01 Lisinopril 10 Mg Tab PO 10 mg HS SEBASTIÁN Administration Metoprolol Tartrate 50 mg 12/31/23 09:00 12/31/23 08:29 Metoprolol Tartrate 50 Mg Tab PO Not Given BID [facility] Naloxone HCl 0.2 mg 12/30/23 12:46 Naloxone 0.4 Mg/Ml 1 Ml Vial IV Q2M PRN Opioid Reversal Ondansetron HCl 4 mg 12/30/23 12:46 Ondansetron 4 Mg/2 Ml Vial IVP Q8HR PRN Nausea And Vomiting 12/30/23 10:10 12/30/23 10:10
[2023-12-31 11:29] LABS: ALT 14 U/L (8-44); AST 30 U/L (13-35); Albumin 3.9 g/dL (3.8-4.9); Albumin/Globulin Ratio 1.62 Ratio (1.60-3.17); Alkaline Phosphatase 95 U/L (41-126); BUN/Creat Ratio 16.38 Ratio (12.00-20.00); Blood Urea Nitrogen 13.1 mg/dL (9.0-27.0); Calcium 9.1 mg/dL (8.7-10.3); Carbon Dioxide 21.5 mmol/L (21.6-31.8); Chloride 106 mmol/L (96-109); Globulin 2.4 g/dL (1.6-3.3); Glucose 103 mg/dL (70-110); Potassium 4.4 mmol/L (3.5-5.5); Sodium 139 mmol/L (135-145); Total Bilirubin 0.4 mg/dL (0.3-1.2); Total Protein 6.3 g/dL (6.2-8.2)
[2023-12-31] MEDS ORDERED: ASPIRIN 81 MG PO SCH (12:00)
--- NOTE | 2023-12-31 12:07 | CA ---
Exercise Stress Test Report Name: Ami Mendoza Exam Date: 12/31/2023 10:24 Exam Location: [place] Stress Ht (in): 65 Wt (lb): 185 BSA: 1.91 Ordering Phys: Aissatou Rossi Referring Phys: VICKY,, Technologist: Jose Jacobsen Age: 63 Gender: F : 1960 Procedure CPT: Indications: CP ICD-10 Codes: Patient History: CP, RAMESH, PALP, NUMBNESS FACE/NECK, HTN, TIA, FAMILY HX, CATH, ASTHMA Medications: SEE CHART Meds past 24 hrs: Pretest Chest Pain: STRESS TEST Protocol Exercise Duration (min:sec): 03:[address] Depressions (mm): Angina Score: Butler Score: Resting HR (bpm): 85 Peak HR (bpm): 103 Resting BP (mmHg): 116 / 84 Peak BP (mmHg): 153 / 92 MPHR: 155 Target HR: 132 % MPHR: 66 METS: 5.0 Total Dose: Peak Dose: Atropine: Double Product: 59249 BP Response: Stress Termination: MAX EXERTION Stress Symptoms: NO SYMPTOMS Stress Summary: ECG ANALYSIS Resting ECG: Normal sinus rhythm normal lites normal intervals Stress ECG: Patient exercised on Kushal protocol for 3 minutes achieving 85% of predicted maximal heart rate without chest pain or diagnostic its ST segment depression CONCLUSIONS Poor exercise tolerance Negative stress test by EKG criteria Dr. James Chiu MD (Electronically Signed) Final Date: 31 December 2023 12:07
--- NOTE | 2023-12-31 12:09 | P.DS ---
Providers Date of admission: 12/30/23 12:48 Expected date of discharge: 12/31/23 Attending physician: Yasmany Jewell MD Consults: 12/30/23 12:46 Consult Physician Routine Consulting Provider: [facility] Consult Reason/Comments: new onset afib, chest pain Do you want consulting provider notified?: Yes Primary care physician: [facility] Course: 63 year old F with PMH of HTN, TIA, h/o PFO closure, multiple sclerosis, hypothyroidism, dyslipidemia presents to the ED. She was enjoying breakfast around 8:30 AM when suddenly started on experience palpitations. During this time she also noted lightheadedness and pressure like chest pain. When symptoms persisted this prompted her to come to the ED. She denies excessive caffeine or alcohol use. She did take a dose of Metoprolol prior to coming. She underwent extensive evaluation in the ED. BP 123, HR 91, T 97.6F, RR 18, 98% on RA. In the ED, she underwent EKG which showed atrial fibrillation with RVR rate of 131. She became rate controlled without any intervention. CBC, Coag panel, CMP was done significant for Na 135, bicarb 20, glucose 132. D-Dimer 0.82. Troponin < 0.012. TSH 3.62. UA large LE. COVID, RSV, Flu negative. CTA chest aortic root dilated to 4.2 cm, no PE, mild bronchial wall thickening. CXR negative. 12/30 Patient was seen and examined. Telemetry shows HR in the 70s. Cardiology consulted, Metoprolol increased to 50 mg PO BID. Started on Eliquis for AC. Troponin 0.023, < 0.012. Attempted stress test but unable to achieve target HR due to beta radha. Discussed with Aissatou RIVER, cleared for discharge with outpatient follow up for stress test and Echo. General: non toxic, no distress, appears at stated age Derm: warm, dry Head: atraumatic, normocephalic, symmetric Eyes: EOMI, no lid lag, anicteric sclera Mouth: no lip lesion, mucus membranes moist Cardiovascular: S1S2 irregular, no murmur Lungs: CTA bilateral, no rhonchi, no rales , no accessory muscle use Ext: no gross muscle atrophy, no edema, no contractures Neuro: no focal neuro deficits Psych: Alert, oriented, appropriate affect Discharge Diagnosis: Atrial fibrillation with RVR Elevated D-Dimer Chest pressure Hypertension Multiple sclerosis Hypothyroidism Dyslipidemia This complex discharge took 35 minutes to complete. Patient Condition at Discharge: Stable Plan - Discharge Summary Discharge Rx Participant: No New Discharge Prescriptions: New Apixaban [Eliquis] 5 mg PO BID #60 tab Metoprolol Tartrate [Lopressor] 50 mg PO BID #60 tab Continue Omeprazole [PriLOSEC] 20 mg PO DAILY@1200 Cyclobenzaprine [Flexeril] 10 mg PO HS PRN PRN Reason: Muscle Spasm Levothyroxine Sodium [Synthroid] 100 mcg PO DAILY Gabapentin [Neurontin] 100 mg PO BID Aspirin [Adult Low Dose Aspirin EC] 81 mg PO DAILY@1200 Atorvastatin [Lipitor] 20 mg PO Q2D@2100 Docusate [Colace] 100 mg PO DAILY lisinopriL [Zestril] 10 mg PO HS Cholecalciferol [Vitamin D3 (25 Mcg = 1000 Iu)] 37.5 mcg PO DAILY Multivitamins, Thera [Multivitamin (formulary)] 1 tab PO DAILY Discontinued Metoprolol Tartrate [Lopressor] 50 mg PO W/BRKFST Metoprolol Tartrate [Lopressor] 25 mg PO W/SUPPER Discharge Medication List Omeprazole [PriLOSEC] 20 mg PO DAILY@1200 10/17/14 [History] Cyclobenzaprine [Flexeril] 10 mg PO HS PRN 12/29/16 [History] Levothyroxine Sodium [Synthroid] 100 mcg PO DAILY 02/16/17 [History] Gabapentin [Neurontin] 100 mg PO BID 03/20/19 [History] Aspirin [Adult Low Dose Aspirin EC] 81 mg PO DAILY@1200 08/26/19 [History] Atorvastatin [Lipitor] 20 mg PO Q2D@2100 02/13/23 [History] Cholecalciferol [Vitamin D3 (25 Mcg = 1000 Iu)] 37.5 mcg PO DAILY 07/24/23 [History] Docusate [Colace] 100 mg PO DAILY 07/24/23 [History] lisinopriL [Zestril] 10 mg PO HS 07/24/23 [History] Multivitamins, Thera [Multivitamin (formulary)] 1 tab PO DAILY 12/30/23 [History] Apixaban [Eliquis] 5 mg PO BID #60 tab 12/31/23 [Rx] Metoprolol Tartrate [Lopressor] 50 mg PO BID #60 tab 12/31/23 [Rx] Follow up Appointment(s)/Referral(s): Cindy Hernandez MD [STAFF PHYSICIAN] - 1 Week Thomas Donahue MD [Primary Care Provider] - 1-2 days Discharge Disposition: HOME SELF-CARE
[2023-12-31 12:10] VITALS: BP 127/82; PULSE 71; RESP 17
[2023-12-31 12:11] VITALS: TEMP 97.5
[2023-12-31] MEDS ORDERED: ATORVASTATIN 20 MG TAB PO SCH (21:00)
== END 2023-12-31 13:29 | disposition home or self-care (01) ==
LOC: EC 09:53 → 6NMEDSUR 12:48 → 3SCARD 12-31 03:46 → 3NCARDOBS 12-31 08:19 → 3SCARD 12-31 10:36
PROVIDERS: ADMIT Family Medicine; ATTEND Family Medicine
DX: I48.0 Paroxysmal atrial fibrillation (principal); R07.89 Other chest pain; R79.89 Other specified abnormal findings of blood chemistry; I10 Essential (primary) hypertension; G35 Multiple sclerosis; E78.5 Hyperlipidemia, unspecified; E03.9 Hypothyroidism, unspecified; K21.9 Gastro-esophageal reflux disease without esophagitis; Z11.52 Encounter for screening for COVID-19; Z86.73 Personal history of transient ischemic attack (TIA), and cerebral infarction without residual deficits; Z87.74 Personal history of (corrected) congenital malformations of heart and circulatory system; Z79.01 Long term (current) use of anticoagulants; Z79.890 Hormone replacement therapy; Z79.82 Long term (current) use of aspirin; Z79.899 Other long term (current) drug therapy; Z88.5 Allergy status to narcotic agent
CPT/HCPCS: 96360; 99285; 36415; 93005; 93017; 85379; 80053 ×2; 83735; 84443; 84484; 85025 ×2; 85610; 85730; 81001; 87636; 71046; 71275; G0378 ×3; Q9967

== ENCOUNTER → 2024-07-13 | Outpatient (CLI) | payer MEDICARE ==
--- NOTE | 2024-07-15 14:16 | CT ---
EXAMINATION TYPE: CT chest wo con DATE OF EXAM: 07/13/2024 COMPARISON: 05/13/2021 HISTORY: Lung Nodule. CT DLP: 488.3 mGycm, Automated exposure control for dose reduction was used. CONTRAST: Performed injected with 0 mL of Isovue 300. TECHNIQUE: Axial images were obtained at 5 mm thick sections. Reconstructed images are reviewed on [employer] computer in the coronal plane. FINDINGS: Portion of the thyroid visualized is normal. Appears to be a new irregular density along the lateral right apex measuring 0.9 cm. Series 4 image 6 . Series 6 image 63 There is a 1.0 cm nodular density in the posterior medial left sulcus. This may have some more centra l calcification. This was present previously and appear stable. No enlarged mediastinal or hilar adenopathy is evident. The ascending aorta diameter at the level o f the main pulmonary artery is 4.1 cm. The main pulmonary artery diameter at the bifurcation is 2.6 cm. Mild coronary artery calcifications present. Limited CT sections are obtained through the upper abdomen. Abdomen is essentially unremarkable. IMPRESSION: 1. New right apical thickening. Additional workup recommended. 2. Stable left lower lobe nodule [facility], Workstation: [id number] ENRIQUE, 07/15/2024 2:14 PM
== END | disposition home or self-care (01) ==
LOC: RADCTMAIN 15:57
PROVIDERS: ATTEND Family Medicine
DX: R91.8 Other nonspecific abnormal finding of lung field (principal)
CPT/HCPCS: 71250

== ENCOUNTER → 2024-12-05 | Outpatient (CLI) | payer MEDICARE | END | disposition home or self-care (01) | LOC: LABWHC1 12:27 | PROVIDERS: ATTEND Ophthalmology | DX: G35 Multiple sclerosis (principal); G43.B0 Ophthalmoplegic migraine, not intractable | CPT/HCPCS: 36415; 85652; 86140 ==

== ENCOUNTER → 2025-02-28 | Outpatient (CLI) | payer MEDICARE ==
--- NOTE | 2025-02-28 13:23 | MM ---
Reason for Exam: Screening (asymptomatic). Last mammogram was performed 1 year(s) and 7 month(s) ago. Patient History: Menarche at age 10. First Full-Term at age 18. Left ovary removed at age 22. Right ovary removed at age 22. Hysterectomy at age 22. Postmenopausal. Estrogen, from age 22 until age 48. Progesterone, from age 22 until age 48. Sister had breast cancer. Mother had breast cancer. Risk Values: Emma 5 year model risk: 6.8%. NCI Lifetime model risk: 22.4%. Prior Study Comparison: 01/28/2018 Bilateral Screening Mammogram, [facility]. 09/26/2020 Bilateral Screening Mammogram, [facility]. 08/11/2023 Bilateral MG 3D screening mammo w/cad, [facility]. Tissue Density: There are scattered areas of fibroglandular density. Findings: Analyzed By CAD. Unchanged bilateral nipple inversion. There is no suspicious group of microcalcifications or new suspicious mass in either breast. Overall Assessment: Benign, BI-RAD 2 Management: Screening Mammogram of both breasts in 1 year. SEE NOTE BELOW IN REGARDS TO THE PATIENT'S INCREASED 5 YEAR EMMA SCORE AND INCREASED LIFETIME RISK SCORE. Patient should continue monthly self-breast exams. A clinical breast exam by your physician is recommended on an annual basis. This exam should not preclude additional follow-up of suspicious palpable abnormalities. Note on Emma scores and lifetime risk: 1. A Emma score greater than 3% is considered moderate risk. If this is the case, consider specialist referral to assess eligibility for a risk reducing agent. 2. If overall lifetime risk for the development of breast cancer is 20% or higher, the patient may qualify for future screening with alternating mammogram and breast MRI. [facility], , 02/28/2025 1:20 PM. Electronically signed and approved by: Cornelio Potts M.D. Radiologist
== END | disposition home or self-care (01) ==
LOC: RADMAMWWP 10:40
PROVIDERS: ATTEND Family Medicine
DX: Z12.31 Encounter for screening mammogram for malignant neoplasm of breast (principal); R92.323 Mammographic fibroglandular density, bilateral breasts; Z78.0 Asymptomatic menopausal state; Z80.3 Family history of malignant neoplasm of breast
CPT/HCPCS: 77063; 77067

== ENCOUNTER 2025-03-28 08:27 | Day surgery (SDC) | payer MEDICARE ==
[2025-03-28 09:57] VITALS: TEMP 98
[2025-03-28] MEDS: IV FLUID CONTINUATION 1,000 ML IV ONE (10:05)
[2025-03-28] MEDS: LACTATED RINGERS 1,000 ML IV SCH (10:05)
[2025-03-28] MEDS ORDERED: LIDOCAINE 2% (PF) 20 MG/ML 5 ML VIAL ONE (10:29)
[2025-03-28] MEDS ORDERED: PROPOFOL 10 MG/ML 20 ML VIAL IV ONE (10:29)
--- NOTE | 2025-03-28 10:45 | P.PCN ---
Date of Procedure: 03/28/25 Procedure(s) Performed: BRIEF HISTORY: Patient is a 64-year-old, pleasant, white female seen for an upper endoscopy as a part evaluation of longstanding history of GERD/Patton's esophagus and intermittent dysphagia to solids for the last 2 months duration. PROCEDURE PERFORMED: Esophagogastroduodenoscopy with biopsy PREOPERATIVE DIAGNOSIS: GERD/Patton's esophagus and intermittent dysphagia to solid. IV sedation per anesthesia. PROCEDURE: After informed consent was obtained, the patient was brought into the endoscopy unit. IV sedation was administered by Anesthesia under continuous monitoring. Initially the Olympus GIF-140 video endoscope was inserted into the mouth. Esophagus intubated without any difficulty. It was gradually advanced into the stomach and duodenum and carefully examined. The bulb and the second part of the duodenum appeared normal. The scope at this time was withdrawn to the stomach, adequately insufflated with air, and upon careful examination, mucosa of the antrum, body, cardia and the fundus appeared normal. The scope was then withdrawn into the esophagus. The GE junction was located at 39 cm from the incisors. Small hiatal hernia noted. There was a 2 mm tongues of Patton's appearing mucosa proximal to the GE junction that was biopsied. The esophagus appeared normal. There were no erosions or ulcerations seen, no evidence of esophageal stricture and the patient tolerated the procedure well. IMPRESSION: 1. Short segment Patton's esophagus. 2. Small hiatal hernia 3. No evidence of esophagitis or esophageal stricture. RECOMMENDATIONS: The findings of this examination were discussed with the patient as well as her family. She was advised to follow-up with the biopsy results. Increase omeprazole to 20 mg twice daily to be taken half hour before breakfast and dinnertime and follow antireflux measures. Follow-up in the office in 1 month..
[2025-03-28 11:14] VITALS: BP 124/84; PULSE 56; RESP 16
== END 2025-03-28 11:43 | disposition home or self-care (01) ==
LOC: ORWHC2ENDO 08:27
PROVIDERS: ATTEND Internal Medicine Gastroenterology
DX: K21.9 Gastro-esophageal reflux disease without esophagitis (principal); K22.70 Barrett's esophagus without dysplasia; K44.9 Diaphragmatic hernia without obstruction or gangrene
CPT/HCPCS: 88305; 43239; J2704; J2003